=== PATIENT | male | born 1975 | race Caucasian/White ===

== ENCOUNTER 2018-03-01 16:31 | Inpatient (IN) ==
[2018-03-01] MEDS: traZODone 50 MG TABLET GTUBE SCH (23:02)
[2018-03-01] MEDS: Melatonin 3 MG TABLET GTUBE SCH (23:03)
[2018-03-02] MEDS: *HR* Heparin 5,000 UNIT/ML VIAL SQ SCH ×2 (05:28→17:16)
[2018-03-02 07:52] LABS: Basophils # 0.1 K/mcL (0.0-0.2); Basophils % 0.7 %; Eosinophils # 0.1 K/mcL (0.0-0.6); Eosinophils % 1.1 %; Hematocrit 42.9 % (37.5-50.1); Hemoglobin 14.2 g/dL (12.9-16.9); Immature Granulocytes % 0.3 % (0-4); Lymphocytes # 2.4 K/mcL (0.6-4.6); Lymphocytes % 32.4 %; Mean Corpuscular HGB Conc 33.1 g/dL (31.6-35.5); Mean Corpuscular Hemoglobin 30.1 pg (28.0-33.3); Mean Corpuscular Volume 91.1 fL (83.0-100.0); Mean Platelet Volume 11.4 fL (9.4-12.4); Monocytes # 0.7 K/mcL (0.0-1.3); Monocytes % 10.2 %; Platelet Count 261 K/mcL (140-400); Red Blood Count 4.71 M/mcL (4.19-5.50); Red Cell Distribution Width 12.6 % (11.5-14.5); Segmented Neutrophils % 55.3 %
[2018-03-02 08:16] LABS: Alanine Aminotransferase 36 Units/L (7-52); Albumin 4.3 g/dL (3.5-5.7); Albumin/Globulin Ratio 1.4 (1.1-2.2); Alkaline Phosphatase 187 Units/L (34-104); Aspartate Amino Transferase 26 Units/L (13-39); BUN/Creatinine Ratio 24 (6-26); Bilirubin,Total 0.4 mg/dL (0.3-1.0); Blood Urea Nitrogen 20 mg/dL (6-20); Calcium 9.6 mg/dL (8.6-10.3); Carbon Dioxide 32 mEq/L (23-29); Chloride 98 mEq/L (98-107); Globulin 3.1 g/dL (2.4-3.5); Glucose 89 mg/dL (70-105); Osmolality,Calculated 284 (280-300); Potassium 4.1 mEq/L (3.5-5.1); Sodium 136 mEq/L (136-145); Total Protein 7.4 g/dL (6.4-8.9); eGFR For Non-African Americans > 60 (> 60)
[2018-03-02] MEDS: Aspirin 81 MG TAB.CHEW GTUBE SCH (09:02)
[2018-03-02] MEDS: Metoclopramide 10 MG/10 ML UD.LIQ GTUBE SCH ×3 (09:02→17:15)
[2018-03-02] MEDS: Phenytoin Oral Susp 100 MG/4 ML UDC GTUBE SCH ×2 (10:08→21:17)
[2018-03-02] MEDS: levETIRAcetam 500 MG/5 ML UDC GTUBE SCH ×2 (10:08→21:19)
--- NOTE | 2018-03-02 12:55 | Internal Med History&Physical ---
Date of Encounter: 03/02/18 Time of Encounter: 12:55 Assessment and Plan (1) CVA (cerebral vascular accident) Current visit: Yes Status: Acute Patient was transferred to this facility for rehabilitation due to deconditioning secondary to left frontal CVA. 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 Per medical records recent CAT scans have shown no regrowth at the tumor site and also indicate no signs of hydrocephalus. Patient does have RECEIVABLE EXECUTIVE shunt in place. Patient has had a aphasia and dysphagia as a residual of his recent acute left CVA. She currently receives his nutritional intake by gastrostomy tube remains nothing by mouth. Physical therapy evaluation has been pending with recommendations. We will continue with current plan of care. Qualifiers: CVA mechanism: unspecified Qualified Code(s): I63.9 - Cerebral infarction, unspecified (2) Dysphasia Current visit: Yes Status: Acute Patient has dysphagia as a residual from his left frontal CVA. Patient currently receives bolus feedings through his gastrostomy tube and remains nothing by mouth. Patient indicated that he takes ice chips at home. We will have speech therapy evaluate. Will continue with nothing by mouth and bolus tube feedings. We will monitor nutrition by serial labs and weights. (3) HTN (hypertension) Current visit: Yes Status: Acute Vital signs are stable. We will continue with current medications. Qualifiers: Hypertension type: essential hypertension Qualified Code(s): I10 - Essential (primary) hypertension (4) Seizures Current visit: Yes Status: Chronic Patient with history of seizures. Currently no acute neurological deficits or noticeable seizure activity was noted. We will continue on his AED medications Internal Medicine - H&P: HPI Chief complaint: CVA Admitted From: Intrahospital Transfer Plans for Post Hospital Care: Home History of present illness: Mr. Ybarra is a 42 year old male who was admitted for rehabilitation due to deconditioning secondary to his having an acute left frontal CVA and a recent tumor debulking on the right frontal lobe several years ago, resulting in left hemiparesis. Patient also is nonverbal and has experienced dysphagia, remaining nothing by mouth with complete nutritional intake by gastrostomy tube. 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 Patient received chemotherapy treatments afterwards and annual CT scans over the past several years show no regrowth. Patient has a history of a RECEIVABLE EXECUTIVE shunt in place with recent CT scan showing no signs of hydrocephalus. 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 Patient currently indicates no complaints of discomforts or shortness of breath. Appears relaxed and communicates by spelling out words on his phone. Past Med Surg Social Fam HX - Past Medical History Medical history: CVA, malignancy Additional medical history: hx of brain cancer. Psychiatric history: no psych history - Past Surgical History Additional surgical history: brain CA - Social History Smoking Status: Never smoker Smokeless Tobacco Status: No Alcohol use: none Drug use: none Internal Medicine - H&P: Meds LevETIRAcetam [Levetiracetam] 1,000 mg GTUBE BID 11/27/15 [History] Acetaminophen [Tylenol] 650 mg GTUBE Q4HR PRN 03/01/18 [History] Amitriptyline [Elavil] 10 mg GTUBE HS 03/01/18 [History] Aspirin [Lo-Dose Aspirin EC] 81 mg GTUBE DAILY 03/01/18 [History] Atorvastatin Calcium [Lipitor] 20 mg GTUBE HS 03/01/18 [History] Donepezil HCl [Aricept] 10 mg GTUBE HS 03/01/18 [History] Metoclopramide [Reglan] 10 mg PO TIDAC 03/01/18 [History] Phenytoin Oral Susp [Dilantin Susp] 200 mg GTUBE BID 03/01/18 [History] Sucralfate [Carafate] 1 gm GTUBE QIDAC 03/01/18 [History] 3 Allergy/AdvReac Type Severity Reaction Status Date / Time codeine Allergy Hives Verified 03/01/18 20:56 Latex, Natural Rubber Allergy Hives Verified 03/01/18 21:05 lorazepam [From Ativan] Allergy Hives Verified 11/27/15 11:36 promethazine [From Phenergan] AdvReac Confusion Verified 03/01/18 21:05 All Systems PM: A 10-system review of systems was performed and is negative for pertinent findings except as documented above in the HPI. - Constitutional Constitutional: no chills, no fever(s), no night sweats - EENT Eyes: no change in vision, no discharge, no pain, no photophobia Ears: no ear discharge, no ear pain, no tinnitus Nose, mouth and throat: no dysphagia, no nasal discharge, no neck pain, no sore throat - Cardiovascular Cardiovascular ROS IM: as per HPI, no chest pain, no diaphoresis, no dyspnea, no lightheadedness, no palpitations, no syncope - Respiratory Respiratory: as per HPI, no cough, no dyspnea, no wheezing, no excessive phlegm production - Gastrointestinal Gastrointestinal: as per HPI, no abdominal pain, no diarrhea, no hematemesis, no hematochezia, no melena, no nausea, no vomiting - Musculoskeletal Musculoskeletal ROS IM: as per HPI, no numbness, no tingling - Integumentary Integumentary IM: no rash, no unusual bruising - Neurological Neurological ROS: as per HPI, no confusion, no convulsions, no focal weakness, no numbness, no tingling, no tremor(s) - Hematologic/Lymphatic Hematologic/Lymphatic: no easy bruising - Constitutional Vitals: Temp Pulse Resp BP Pulse Ox 98.3 F 72 16 114/77 94 03/02/18 12:26 03/02/18 12:26 03/02/18 12:26 03/02/18 12:26 03/02/18 12:26 Exam: Patient is nonverbal secondary to CVA. Patient is very appropriate with answering questions by spelling words on his phone. Exam is limited. - Head Head exam: Present: atraumatic Additional comments: Patient shows deformity of right parietal area of skull secondary from have and 3 craniotomies over the past several years for tumor debulking. - Eye Eye exam: Present: PERRL, conjuntiva pink, sclera anicteric Pupils: Present: PERRL - Neck Neck exam general surgery: Present: supple, trachea midline. Absent: lymphadenopathy - Respiratory Respiratory exam: Present: CTAB. Absent: accessory muscle use, rales, rhonchi, wheezes - Cardiovascular Cardiovascular exam: Present: RRR, +S1, +S2. Absent: diastolic murmur, gallop, rubs, systolic murmur - GI/Abdominal GI/Abdominal exam: Present: normal bowel sounds, soft, no peritoneal signs. Absent: distended, tenderness Additional comments: Gastrostomy tube in place with insertion site appearing normal - Extremities Exam Extremities exam: Present: warm, radial pulses palpable and symmetrical. Absent : calf tenderness, cyanotic, pedal edema - Neurological Exam Neurological exam: Present: CN II-XII intact, oriented X3. Absent: pronater drift, facial droop, speech deficit Additional comments: Patient shows left hemiparesis with left extremities and 4/5 and right extremities at 5/5 muscle strength. Patient is nonverbal and has history of dysphagia, remaining nothing by mouth - Skin Skin exam: Present: dry, intact Internal Med - H&P Results - Labs CBC & Chem 7: 03/02/18 06:50 03/02/18 06:50 Labs: Short CBC 03/02/18 Range/Units 06:50 WBC 7.3 (4.3-11.1) K/mcL Hgb 14.2 (12.9-16.9) g/dL Hct 42.9 (37.5-50.1) % Plt Count 261 (140-400) K/mcL Neutrophils # 4.0 (1.6-8.9) K/mcL BMP 03/02/18 06:50 Sodium 136 Potassium 4.1 Chloride 98 Carbon Dioxide 32 H BUN 20 Creatinine 0.83 Glucose 89 Calcium 9.6 Liver Function 03/02/18 Range/Units 06:50 Total Bilirubin 0.4 (0.3-1.0) mg/dL AST 26 (13-39) Units/L ALT 36 (7-52) Units/L Alkaline Phosphatase 187 H (34-104) Units/L Albumin 4.3 (3.5-5.7) g/dL
[2018-03-02] MEDS: traZODone 50 MG TABLET GTUBE SCH (21:20)
[2018-03-02] MEDS: Melatonin 3 MG TABLET GTUBE SCH (21:20)
[2018-03-03] MEDS: Metoclopramide 10 MG/10 ML UD.LIQ GTUBE SCH ×3 (06:31→17:17)
[2018-03-03] MEDS: *HR* Heparin 5,000 UNIT/ML VIAL SQ SCH ×2 (06:37→17:17)
[2018-03-03] MEDS: Phenytoin Oral Susp 100 MG/4 ML UDC GTUBE SCH ×2 (08:39→21:32)
[2018-03-03] MEDS: Aspirin 81 MG TAB.CHEW GTUBE SCH (08:39)
[2018-03-03] MEDS: levETIRAcetam 500 MG/5 ML UDC GTUBE SCH ×2 (08:39→21:32)
--- NOTE | 2018-03-03 14:08 | Internal Med Progress Note ---
Date of Encounter: 03/03/18 Time of Encounter: 14:06 - Assessment and plan (1) CVA (cerebral vascular accident) Current Visit: Yes Status: Acute Assessment and plan: We will continue therapies as planned. Swallowing assessment will be completed and discussed possible modified barium if this can be arranged, next week. In the meantime, he will not be given liquids and will be fed with tube feeds, only. Qualifiers: CVA mechanism: unspecified Qualified Code(s): I63.9 - Cerebral infarction, unspecified (2) Dysphasia Current Visit: Yes Status: Acute Assessment and plan: See above. (3) HTN (hypertension) Current Visit: Yes Status: Acute Assessment and plan: He is stable from this standpoint. Qualifiers: Hypertension type: essential hypertension Qualified Code(s): I10 - Essential (primary) hypertension (4) Seizures Current Visit: Yes Status: Chronic Assessment and plan: No evidence of seizures, currently. (5) Glioblastoma multiforme Current Visit: Yes Status: Acute Assessment and plan: This is apparently in remission since 2003. He is status post craniotomy 3 as well as radiation. - Subjective Interval history: Patient without complaint. He is doing well and has no bowel or bladder problems. Discussed the patient swallowing and speech therapy's recommendation to use water protocol after nursing staff can be oriented to paresis same. This is because he has March weakness in his muscles and probably is at increasing aspiration risk. We discussed the need for DVT prophylaxis and that he should have either enoxaparin or heparin subcutaneous. An alternative is dose but not as good. If he refuses, we cannot force him to do so and he understands his risk. He is participating well with therapies and has no issues with that. Patient has no complaint of chest discomfort, dyspnea, orthopnea, palpitations, nausea or vomiting, constipation or diarrhea, other changes in bowel habits, difficulty with urination, rash or itching, or other new complaints, except as mentioned above. Review of systems is otherwise negative. I discussed management of her care with nursing staff. - Constitutional Vitals: Temp Pulse Resp BP Pulse Ox 98.3 F 77 15 112/68 94 03/03/18 07:36 03/03/18 07:36 03/03/18 07:36 03/03/18 07:36 03/03/18 07:36 Exam: Examination: (Except as mentioned above): General: In no apparent distress. Alert and oriented 3. Nondiaphoretic. Head: Atraumatic and normocephalic. Respiratory: No use of accessory muscles. Lungs are clear throughout. Normal airflow. Cardiovascular: Regular rate and rhythm without murmur appreciated. Abdomen: Bowel sounds are normal. No hepatosplenomegaly mass or tenderness appreciated. Obese and therefore difficult to palpate deeply. Extremities: No cyanosis clubbing or edema. Neurologic: The patient still has difficulty with speech and communicates via texting on his cell phone. Skin: Warm and non-diaphoretic with no new lesions noted. Internal Medicine: Result - Labs CBC & Chem 7: 03/02/18 06:50 03/02/18 06:50 Consult Discharge Plan - Plan Referrals: Arias Barth MD [Primary Care Provider] -
[2018-03-03] MEDS: Melatonin 3 MG TABLET GTUBE SCH (21:34)
[2018-03-03] MEDS: traZODone 50 MG TABLET GTUBE SCH (21:34)
[2018-03-04] MEDS: *HR* Heparin 5,000 UNIT/ML VIAL SQ SCH (08:09)
[2018-03-04] MEDS: Aspirin 81 MG TAB.CHEW GTUBE SCH (08:12)
[2018-03-04] MEDS: levETIRAcetam 500 MG/5 ML UDC GTUBE SCH ×2 (08:12→20:29)
[2018-03-04] MEDS: Metoclopramide 10 MG/10 ML UD.LIQ GTUBE SCH ×3 (08:12→16:19)
[2018-03-04] MEDS: Phenytoin Oral Susp 100 MG/4 ML UDC GTUBE SCH ×2 (08:12→20:30)
--- NOTE | 2018-03-04 11:52 | Internal Med Progress Note ---
Date of Encounter: 03/04/18 Time of Encounter: 11:49 - Assessment and plan (1) CVA (cerebral vascular accident) Current Visit: Yes Status: Acute Assessment and plan: Continue PT, OT. Will follow progress. Continue feeding through G-tube. No new neurological deficits at this time. Qualifiers: CVA mechanism: unspecified Qualified Code(s): I63.9 - Cerebral infarction, unspecified (2) Dysphasia Current Visit: Yes Status: Acute Assessment and plan: Using alternative forms for communication appropriately. (3) HTN (hypertension) Current Visit: Yes Status: Acute Assessment and plan: Controlled with current medication. Monitor blood pressure. Qualifiers: Hypertension type: essential hypertension Qualified Code(s): I10 - Essential (primary) hypertension (4) Seizures Current Visit: Yes Status: Chronic Assessment and plan: Controlled. Continue current medication. (5) Glioblastoma multiforme Current Visit: Yes Status: Acute - Time Spent With Patient less than 15 minutes - Subjective Interval history: Resting in bed. Denies complaints. Continues enteral feedthrough G-tube. - Constitutional Vitals: Temp Pulse Resp BP Pulse Ox 98.8 F 74 16 105/66 96 03/04/18 07:34 03/04/18 07:34 03/04/18 07:34 03/04/18 07:34 03/04/18 07:34 General appearance: Present: A&O X 3, pleasant, no acute distress, answers questions appropriately Exam: Has dysphasia from previous stroke. Communicates through text. - Head Head exam: Present: atraumatic, normocephalic - Eye Eye exam: Present: PERRL, conjuntiva pink, sclera anicteric Pupils: Present: PERRL - Neck Neck exam general surgery: Present: supple, trachea midline. Absent: lymphadenopathy - Respiratory Respiratory exam: Present: CTAB. Absent: accessory muscle use, rales, rhonchi, wheezes - Cardiovascular Cardiovascular exam: Present: RRR, +S1, +S2. Absent: diastolic murmur, gallop, rubs, systolic murmur - GI/Abdominal GI/Abdominal exam: Present: normal bowel sounds, soft, no peritoneal signs. Absent: distended, tenderness - Extremities Exam Extremities exam: Present: warm, radial pulses palpable and symmetrical. Absent : calf tenderness, cyanotic, pedal edema - Neurological Exam Neurological exam: Present: CN II-XII intact, oriented X3, no focal deficits. Absent: pronater drift, facial droop, speech deficit - Skin Skin exam: Present: dry, intact Internal Medicine: Result - Labs CBC & Chem 7: 03/02/18 06:50 03/02/18 06:50 Consult Discharge Plan - Plan Referrals: Arias Barth MD [Primary Care Provider] -
[2018-03-04] MEDS: Melatonin 3 MG TABLET GTUBE SCH (20:30)
[2018-03-04] MEDS: traZODone 50 MG TABLET GTUBE SCH (20:30)
[2018-03-05 07:21] LABS: Basophils # 0.1 K/mcL (0.0-0.2); Basophils % 0.8 %; Eosinophils # 0.1 K/mcL (0.0-0.6); Hematocrit 40.3 % (37.5-50.1); Hemoglobin 13.4 g/dL (12.9-16.9); Immature Granulocytes % 0.3 % (0-4); Lymphocytes # 2.6 K/mcL (0.6-4.6); Lymphocytes % 32.5 %; Mean Corpuscular HGB Conc 33.3 g/dL (31.6-35.5); Mean Corpuscular Hemoglobin 30.1 pg (28.0-33.3); Mean Corpuscular Volume 90.6 fL (83.0-100.0); Mean Platelet Volume 11.1 fL (9.4-12.4); Monocytes # 0.8 K/mcL (0.0-1.3); Monocytes % 10.2 %; Neutrophils # 4.3 K/mcL (1.6-8.9); Platelet Count 225 K/mcL (140-400); Red Blood Count 4.45 M/mcL (4.19-5.50); Red Cell Distribution Width 12.6 % (11.5-14.5); Segmented Neutrophils % 55.2 %
[2018-03-05] MEDS: levETIRAcetam 500 MG/5 ML UDC GTUBE SCH ×2 (08:23→21:54)
[2018-03-05] MEDS: Phenytoin Oral Susp 100 MG/4 ML UDC GTUBE SCH ×2 (08:24→21:54)
[2018-03-05] MEDS: Metoclopramide 10 MG/10 ML UD.LIQ GTUBE SCH ×3 (08:24→16:40)
[2018-03-05] MEDS: Aspirin 81 MG TAB.CHEW GTUBE SCH (08:25)
[2018-03-05 08:27] LABS: BUN/Creatinine Ratio 29 (6-26); Blood Urea Nitrogen 20 mg/dL (6-20); Calcium 9.1 mg/dL (8.6-10.3); Carbon Dioxide 30 mEq/L (23-29); Chloride 97 mEq/L (98-107); Glucose 85 mg/dL (70-105); Osmolality,Calculated 282 (280-300); Potassium 3.6 mEq/L (3.5-5.1); Sodium 135 mEq/L (136-145); eGFR For Non-African Americans > 60 (> 60)
--- NOTE | 2018-03-05 13:34 | Internal Med Progress Note ---
Date of Encounter: 03/05/18 Time of Encounter: 13:32 - Assessment and plan (1) CVA (cerebral vascular accident) Current Visit: Yes Status: Acute Assessment and plan: Continue PT, OT. Will follow progress. Continue feeding through G-tube. No new neurological deficits at this time. Qualifiers: CVA mechanism: unspecified Qualified Code(s): I63.9 - Cerebral infarction, unspecified (2) Dysphasia Current Visit: Yes Status: Acute Assessment and plan: Using alternative forms for communication appropriately. (3) HTN (hypertension) Current Visit: Yes Status: Acute Assessment and plan: Controlled with current medication. Monitor blood pressure. Qualifiers: Hypertension type: essential hypertension Qualified Code(s): I10 - Essential (primary) hypertension (4) Seizures Current Visit: Yes Status: Chronic Assessment and plan: Controlled. Continue current medication. (5) Glioblastoma multiforme Current Visit: Yes Status: Acute - Time Spent With Patient 25 - 35 minutes - Subjective Interval history: participating well with therapy. Denies complaints. Continues enteral feedthrough G-tube. remains NPO. CGA to sit to stand. AFo on Left foot. - Constitutional Vitals: Temp Pulse Resp BP Pulse Ox 97.9 F 82 16 121/76 96 03/04/18 18:48 03/04/18 18:48 03/04/18 18:48 03/04/18 18:48 03/04/18 18:48 General appearance: Present: A&O X 3, pleasant, no acute distress, answers questions appropriately - Head Head exam: Present: atraumatic, normocephalic - Eye Eye exam: Present: PERRL, conjuntiva pink, sclera anicteric Pupils: Present: PERRL - Neck Neck exam general surgery: Present: supple, trachea midline. Absent: lymphadenopathy - Respiratory Respiratory exam: Present: CTAB. Absent: accessory muscle use, rales, rhonchi, wheezes - Cardiovascular Cardiovascular exam: Present: RRR, +S1, +S2. Absent: diastolic murmur, gallop, rubs, systolic murmur - GI/Abdominal GI/Abdominal exam: Present: normal bowel sounds, soft, no peritoneal signs. Absent: distended, tenderness - Extremities Exam Extremities exam: Present: warm, radial pulses palpable and symmetrical. Absent : calf tenderness, cyanotic, pedal edema - Neurological Exam Neurological exam: Present: CN II-XII intact, oriented X3, no focal deficits. Absent: pronater drift, facial droop, speech deficit - Skin Skin exam: Present: dry, intact Internal Medicine: Result - Labs CBC & Chem 7: 03/05/18 07:05 03/05/18 07:05 Labs: Short CBC 03/05/18 Range/Units 07:05 WBC 7.9 (4.3-11.1) K/mcL Hgb 13.4 (12.9-16.9) g/dL Hct 40.3 (37.5-50.1) % Plt Count 225 (140-400) K/mcL Neutrophils # 4.3 (1.6-8.9) K/mcL BMP 03/05/18 07:05 Sodium 135 L Potassium 3.6 Chloride 97 L Carbon Dioxide 30 H BUN 20 Creatinine 0.70 Glucose 85 Calcium 9.1 Consult Discharge Plan - Plan Referrals: Arias Barth MD [Primary Care Provider] -
[2018-03-05] MEDS: traZODone 50 MG TABLET GTUBE SCH (21:55)
[2018-03-05] MEDS: Melatonin 3 MG TABLET GTUBE SCH (21:55)
[2018-03-06] MEDS: Metoclopramide 10 MG/10 ML UD.LIQ GTUBE SCH ×3 (06:44→16:47)
[2018-03-06] MEDS: levETIRAcetam 500 MG/5 ML UDC GTUBE SCH ×2 (09:04→21:26)
[2018-03-06] MEDS: Phenytoin Oral Susp 100 MG/4 ML UDC GTUBE SCH ×2 (09:04→21:25)
[2018-03-06] MEDS: Aspirin 81 MG TAB.CHEW GTUBE SCH (09:05)
--- NOTE | 2018-03-06 10:24 | Internal Med Progress Note ---
Date of Encounter: 03/06/18 Time of Encounter: 10:22 - Assessment and plan (1) CVA (cerebral vascular accident) Current Visit: Yes Status: Acute Assessment and plan: Continue PT, OT. Will follow progress. Continue feeding through G-tube. No new neurological deficits at this time. Qualifiers: CVA mechanism: unspecified Qualified Code(s): I63.9 - Cerebral infarction, unspecified (2) Dysphasia Current Visit: Yes Status: Acute Assessment and plan: Using alternative forms for communication appropriately. (3) HTN (hypertension) Current Visit: Yes Status: Acute Assessment and plan: Controlled with current medication. Monitor blood pressure. Qualifiers: Hypertension type: essential hypertension Qualified Code(s): I10 - Essential (primary) hypertension (4) Seizures Current Visit: Yes Status: Chronic Assessment and plan: Controlled. Continue current medication. (5) Glioblastoma multiforme Current Visit: Yes Status: Acute - Time Spent With Patient less than 15 minutes - Subjective Interval history: participating well with therapy. Denies complaints. Continues enteral feedthrough G-tube. remains NPO. CGA to sit to stand. AFO on Left foot. states slept well last night. - Constitutional Vitals: Temp Pulse Resp BP Pulse Ox 98.0 F 77 16 100/65 97 03/06/18 07:00 03/06/18 07:00 03/06/18 07:00 03/06/18 07:00 03/06/18 07:00 General appearance: Present: A&O X 3, pleasant, no acute distress, answers questions appropriately - Head Head exam: Present: atraumatic, normocephalic - Eye Eye exam: Present: PERRL, conjuntiva pink, sclera anicteric Pupils: Present: PERRL - Neck Neck exam general surgery: Present: supple, trachea midline. Absent: lymphadenopathy - Respiratory Respiratory exam: Present: CTAB. Absent: accessory muscle use, rales, rhonchi, wheezes - Cardiovascular Cardiovascular exam: Present: RRR, +S1, +S2. Absent: diastolic murmur, gallop, rubs, systolic murmur - GI/Abdominal GI/Abdominal exam: Present: normal bowel sounds, soft, no peritoneal signs. Absent: distended, tenderness - Extremities Exam Extremities exam: Present: warm, radial pulses palpable and symmetrical. Absent : calf tenderness, cyanotic, pedal edema - Neurological Exam Neurological exam: Present: CN II-XII intact, oriented X3, no focal deficits. Absent: pronater drift, facial droop, speech deficit - Skin Skin exam: Present: dry, intact Internal Medicine: Result - Labs CBC & Chem 7: 03/05/18 07:05 03/05/18 07:05 Consult Discharge Plan - Plan Referrals: Arias Barth MD [Primary Care Provider] -
[2018-03-06] MEDS: Melatonin 3 MG TABLET GTUBE SCH (21:26)
[2018-03-06] MEDS: traZODone 50 MG TABLET GTUBE SCH (21:27)
[2018-03-07] MEDS: Aspirin 81 MG TAB.CHEW GTUBE SCH (07:37)
[2018-03-07] MEDS: Metoclopramide 10 MG/10 ML UD.LIQ GTUBE SCH ×3 (07:37→16:38)
[2018-03-07] MEDS: Phenytoin Oral Susp 100 MG/4 ML UDC GTUBE SCH ×2 (07:37→22:06)
[2018-03-07] MEDS: levETIRAcetam 500 MG/5 ML UDC GTUBE SCH ×2 (07:38→22:06)
--- NOTE | 2018-03-07 15:15 | Internal Med Progress Note ---
Date of Encounter: 03/07/18 Time of Encounter: 15:12 - Assessment and plan (1) CVA (cerebral vascular accident) Current Visit: Yes Status: Acute Assessment and plan: Continue PT, OT. Will follow progress. Continue feeding through G-tube. No new neurological deficits at this time. Qualifiers: CVA mechanism: unspecified Qualified Code(s): I63.9 - Cerebral infarction, unspecified (2) Dysphasia Current Visit: Yes Status: Acute Assessment and plan: Using alternative forms for communication appropriately. (3) HTN (hypertension) Current Visit: Yes Status: Acute Assessment and plan: Controlled with current medication. Monitor blood pressure. Qualifiers: Hypertension type: essential hypertension Qualified Code(s): I10 - Essential (primary) hypertension (4) Seizures Current Visit: Yes Status: Chronic Assessment and plan: Controlled. Continue current medication. (5) Glioblastoma multiforme Current Visit: Yes Status: Acute - Time Spent With Patient 25 - 35 minutes - Subjective Interval history: participating well with therapy. Denies complaints. Discussed with dietitian about changing to feed. Patient complaining of reflux and constipation. Refuses to take Miralax. - Constitutional Vitals: Temp Pulse Resp BP Pulse Ox 98.3 F 68 16 101/66 98 03/07/18 07:21 03/07/18 07:21 03/07/18 07:21 03/07/18 07:21 03/07/18 07:21 General appearance: Present: A&O X 3, pleasant, no acute distress, answers questions appropriately - Head Head exam: Present: atraumatic, normocephalic - Eye Eye exam: Present: PERRL, conjuntiva pink, sclera anicteric Pupils: Present: PERRL - Neck Neck exam general surgery: Present: supple, trachea midline. Absent: lymphadenopathy - Respiratory Respiratory exam: Present: CTAB. Absent: accessory muscle use, rales, rhonchi, wheezes - Cardiovascular Cardiovascular exam: Present: RRR, +S1, +S2. Absent: diastolic murmur, gallop, rubs, systolic murmur - GI/Abdominal GI/Abdominal exam: Present: normal bowel sounds, soft, no peritoneal signs. Absent: distended, tenderness - Extremities Exam Extremities exam: Present: warm, radial pulses palpable and symmetrical. Absent : calf tenderness, cyanotic, pedal edema - Neurological Exam Neurological exam: Present: CN II-XII intact, oriented X3, no focal deficits. Absent: pronater drift, facial droop, speech deficit - Skin Skin exam: Present: dry, intact Internal Medicine: Result - Labs CBC & Chem 7: 03/05/18 07:05 03/05/18 07:05 Consult Discharge Plan - Plan Referrals: Arias Barth MD [Primary Care Provider] -
[2018-03-07] MEDS: traZODone 50 MG TABLET GTUBE SCH (22:08)
[2018-03-07] MEDS: Melatonin 3 MG TABLET GTUBE SCH (22:08)
[2018-03-08] MEDS: Phenytoin Oral Susp 100 MG/4 ML UDC GTUBE SCH ×2 (09:04→21:36)
[2018-03-08] MEDS: levETIRAcetam 500 MG/5 ML UDC GTUBE SCH ×2 (09:05→21:36)
[2018-03-08] MEDS: Metoclopramide 10 MG/10 ML UD.LIQ GTUBE SCH ×3 (09:05→17:55)
[2018-03-08] MEDS: Aspirin 81 MG TAB.CHEW GTUBE SCH (09:05)
--- NOTE | 2018-03-08 13:41 | Internal Med Progress Note ---
Date of Encounter: 03/08/18 Time of Encounter: 13:45 - Assessment and plan (1) CVA (cerebral vascular accident) Current Visit: Yes Status: Acute Assessment and plan: No acute issues noted. No complaints. Patient remnains nonverbal and with dysphasia. Continued NPO with nutrition per TF. Continued slight left hemiparesis. Continues to progress with PT/OT. Qualifiers: CVA mechanism: unspecified Qualified Code(s): I63.9 - Cerebral infarction, unspecified (2) Dysphasia Current Visit: Yes Status: Acute Assessment and plan: Continue with therapy and TF per GT. Noted high residue today, which may be related to poor progression due to recent constipation. Will review current laxatives and continue to monitor. (3) HTN (hypertension) Current Visit: Yes Status: Acute Assessment and plan: VS stable. Continue on current meds. Qualifiers: Hypertension type: essential hypertension Qualified Code(s): I10 - Essential (primary) hypertension (4) Seizures Current Visit: Yes Status: Chronic Assessment and plan: No noted seizure activity or acute neuro deficits noted. Continue on current AED meds. - Time Spent With Patient less than 15 minutes - Subjective Interval history: Patient is nonverbal, but indicates no issues. Patient communicates by spelling needs on his phone. Denies any dypnea or discomforts. - Constitutional Vitals: Temp Pulse Resp BP Pulse Ox 98.2 F 65 17 110/61 93 03/08/18 07:07 03/08/18 07:07 03/08/18 07:07 03/08/18 07:07 03/08/18 07:07 General appearance: Present: A&O X 3, pleasant, no acute distress, answers questions appropriately - Head Head exam: Present: atraumatic, normocephalic Additional comments: deformity noted to the right héctor secondary to history of multiple craniotomies. - Eye Eye exam: Present: PERRL, conjuntiva pink, sclera anicteric Pupils: Present: PERRL - Neck Neck exam general surgery: Present: supple, trachea midline. Absent: lymphadenopathy - Respiratory Respiratory exam: Present: CTAB. Absent: accessory muscle use, rales, rhonchi, wheezes - Cardiovascular Cardiovascular exam: Present: RRR, +S1, +S2. Absent: diastolic murmur, gallop, rubs, systolic murmur - GI/Abdominal GI/Abdominal exam: Present: normal bowel sounds, soft, no peritoneal signs. Absent: distended, tenderness Additional comments: GT in place - Extremities Exam Extremities exam: Present: warm, radial pulses palpable and symmetrical. Absent : calf tenderness, cyanotic, pedal edema - Neurological Exam Neurological exam: Present: CN II-XII intact, oriented X3. Absent: pronater drift, facial droop, speech deficit Additional comments: Patient shows left hemiparesis with left extremities and 4/5 and right extremities at 5/5 muscle strength. Patient is nonverbal and has history of dysphagia, remaining nothing by mouth - Skin Skin exam: Present: dry, intact Internal Medicine: Result - Labs CBC & Chem 7: 03/05/18 07:05 03/05/18 07:05 Consult Discharge Plan - Plan Referrals: Arias Barth MD [Primary Care Provider] -
[2018-03-08] MEDS: Melatonin 3 MG TABLET GTUBE SCH (21:37)
[2018-03-08] MEDS: traZODone 50 MG TABLET GTUBE SCH (21:38)
[2018-03-09] MEDS: Metoclopramide 10 MG/10 ML UD.LIQ GTUBE SCH ×3 (06:10→17:19)
[2018-03-09] MEDS: Phenytoin Oral Susp 100 MG/4 ML UDC GTUBE SCH ×2 (09:00→22:27)
[2018-03-09] MEDS: levETIRAcetam 500 MG/5 ML UDC GTUBE SCH ×2 (09:00→22:34)
[2018-03-09] MEDS: Aspirin 81 MG TAB.CHEW GTUBE SCH (09:01)
--- NOTE | 2018-03-09 11:16 | Internal Med Progress Note ---
Date of Encounter: 03/09/18 Time of Encounter: 11:14 - Assessment and plan (1) CVA (cerebral vascular accident) Current Visit: Yes Status: Acute Assessment and plan: No acute issues noted. No complaints. Patient remnains nonverbal and with dysphasia. Continued NPO with nutrition per TF. Continued slight left hemiparesis. Continues to progress with PT/OT. Qualifiers: CVA mechanism: unspecified Qualified Code(s): I63.9 - Cerebral infarction, unspecified (2) Dysphasia Current Visit: Yes Status: Acute Assessment and plan: Continue with therapy and TF per GT. Patient has had a BM. Noted less residuals be received by nursing after changing current tube feeding to Jevity (3) HTN (hypertension) Current Visit: Yes Status: Acute Assessment and plan: VS stable. Continue on current meds. Qualifiers: Hypertension type: essential hypertension Qualified Code(s): I10 - Essential (primary) hypertension (4) Seizures Current Visit: Yes Status: Chronic Assessment and plan: No noted seizure activity or acute neuro deficits noted. Continue on current AED meds. - Time Spent With Patient less than 15 minutes - Subjective Interval history: Patient is nonverbal, but indicates no issues. Patient communicates by spelling needs on his phone. Denies any dypnea or discomforts. Nursing states that patient is tolerating current change in tube feedings. Patient also reportedly had a BM and now has been having less tube feeding residuals obtained. - Constitutional Vitals: Temp Pulse Resp BP Pulse Ox 98.8 F 79 16 117/68 98 03/09/18 08:04 03/09/18 08:04 03/09/18 08:04 03/09/18 08:04 03/09/18 08:04 General appearance: Present: A&O X 3, pleasant, no acute distress, answers questions appropriately - Head Head exam: Present: atraumatic, normocephalic Additional comments: Patient shows deformity to the right skull, secondary to multiple craniotomies for tumor debulking - Eye Eye exam: Present: PERRL, conjuntiva pink, sclera anicteric Pupils: Present: PERRL - Neck Neck exam general surgery: Present: supple, trachea midline. Absent: lymphadenopathy - Respiratory Respiratory exam: Present: CTAB. Absent: accessory muscle use, rales, rhonchi, wheezes - Cardiovascular Cardiovascular exam: Present: RRR, +S1, +S2. Absent: diastolic murmur, gallop, rubs, systolic murmur - GI/Abdominal GI/Abdominal exam: Present: normal bowel sounds, soft, no peritoneal signs. Absent: distended, tenderness - Extremities Exam Extremities exam: Present: warm, radial pulses palpable and symmetrical. Absent : calf tenderness, cyanotic, pedal edema - Neurological Exam Neurological exam: Present: CN II-XII intact, oriented X3. Absent: pronater drift, facial droop, speech deficit Additional comments: Patient continues to be nonverbal and with dysphagia. All nutrition per gastrostomy tube. Continues with left hemiparesis with left extremities having muscle strength of 4/5 and right extremities showing muscle strength of 5/5 - Skin Skin exam: Present: dry, intact Internal Medicine: Result - Labs CBC & Chem 7: 03/05/18 07:05 03/05/18 07:05 Consult Discharge Plan - Plan Referrals: Arias Barth MD [Primary Care Provider] -
[2018-03-09] MEDS: Melatonin 3 MG TABLET GTUBE SCH (22:17)
[2018-03-09] MEDS: traZODone 50 MG TABLET GTUBE SCH (22:18)
[2018-03-10] MEDS: Metoclopramide 10 MG/10 ML UD.LIQ GTUBE SCH ×3 (06:36→18:23)
[2018-03-10] MEDS: levETIRAcetam 500 MG/5 ML UDC GTUBE SCH ×2 (09:28→21:15)
[2018-03-10] MEDS: Phenytoin Oral Susp 100 MG/4 ML UDC GTUBE SCH ×2 (09:28→21:22)
[2018-03-10] MEDS: Aspirin 81 MG TAB.CHEW GTUBE SCH (09:29)
--- NOTE | 2018-03-10 11:44 | Internal Med Progress Note ---
Date of Encounter: 03/10/18 Time of Encounter: 11:25 - Assessment and plan (1) CVA (cerebral vascular accident) Current Visit: Yes Status: Acute Assessment and plan: Continue routine care/management per PT/OT/ST. Continue TF given NPO requirement. Qualifiers: CVA mechanism: unspecified Qualified Code(s): I63.9 - Cerebral infarction, unspecified (2) Dysphasia Current Visit: Yes Status: Acute Assessment and plan: Continue TF, but will adjust amount over the weekend so the patient does not feel too overwhelmed. Will continue to monitor I&O and intervene as appropriate. Appreciate nutrition's input. (3) HTN (hypertension) Current Visit: Yes Status: Acute Qualifiers: Hypertension type: essential hypertension Qualified Code(s): I10 - Essential (primary) hypertension (4) Seizures Current Visit: Yes Status: Chronic Assessment and plan: Continue current AED - Time Spent With Patient less than 15 minutes - Subjective Interval history: Tube feed was a little too much handle, so the patient requested to be off of one of the feeds. - Constitutional Vitals: Temp Pulse Resp BP Pulse Ox 98.3 F 87 19 99/67 94 03/10/18 07:42 03/10/18 07:42 03/10/18 07:42 03/10/18 07:42 03/10/18 07:42 General appearance: Present: A&O X 3, pleasant, no acute distress, answers questions appropriately Exam: Gen: Alert, non-verbal, NAD. Communicating through typing. HEENT: NCAT. Neck: No palpable lymphadenopathy or thyromegaly. CV: RRR, S1S2. No murmur. Capillary refill < 2 seconds. Pulm: CTAB. Abd: (+)BS. NDNT. Neuro: Left facial droop, LUE weakness, and LLE weakness noted. Skin: No rash. Ext: No pitting edema. Internal Medicine: Result - Labs CBC & Chem 7: 03/05/18 07:05 03/05/18 07:05 - VTE Documentation of Mechanical Device: Graduated compression elastic hosiery Consult Discharge Plan - Plan Referrals: Arias Barth MD [Primary Care Provider] -
[2018-03-10] MEDS: Melatonin 3 MG TABLET GTUBE SCH (21:23)
[2018-03-10] MEDS: traZODone 50 MG TABLET GTUBE SCH (21:24)
[2018-03-11] MEDS: Metoclopramide 10 MG/10 ML UD.LIQ GTUBE SCH ×3 (06:53→17:25)
--- NOTE | 2018-03-11 07:59 | Internal Med Progress Note ---
Date of Encounter: 03/11/18 Time of Encounter: 07:50 - Assessment and plan (1) CVA (cerebral vascular accident) Current Visit: Yes Status: Acute Assessment and plan: Continue routine care/management per PT/OT/ST. Continue TF given NPO requirement. Qualifiers: CVA mechanism: unspecified Qualified Code(s): I63.9 - Cerebral infarction, unspecified (2) Dysphasia Current Visit: Yes Status: Acute Assessment and plan: Continue TF, but will adjust amount over the weekend so the patient does not feel too overwhelmed. Will continue to monitor I&O and intervene as appropriate. Appreciate nutrition's input. (3) HTN (hypertension) Current Visit: Yes Status: Acute Qualifiers: Hypertension type: essential hypertension Qualified Code(s): I10 - Essential (primary) hypertension (4) Seizures Current Visit: Yes Status: Chronic Assessment and plan: Continue current AED - Time Spent With Patient less than 15 minutes - Subjective Interval history: "Thumb up" when asked how he was feeling. Reports feeling no longer overwhelmed with the TF. - Constitutional Vitals: Temp Pulse Resp BP Pulse Ox 97.8 F 74 14 99/69 96 03/11/18 07:39 03/11/18 07:39 03/11/18 07:39 03/11/18 07:39 03/11/18 07:39 General appearance: Present: A&O X 3, pleasant, no acute distress, answers questions appropriately Exam: Gen: Alert, non-verbal, NAD. Communicating through typing. HEENT: NCAT. Neck: No palpable lymphadenopathy or thyromegaly. CV: RRR, S1S2. No murmur. Capillary refill < 2 seconds. Pulm: CTAB. Abd: (+)BS. NDNT. Neuro: Left facial droop, LUE weakness, and LLE weakness noted. Skin: No rash. Ext: No pitting edema. Internal Medicine: Result - Labs CBC & Chem 7: 03/05/18 07:05 03/05/18 07:05 - VTE Documentation of Mechanical Device: Graduated compression elastic hosiery Consult Discharge Plan - Plan Referrals: Arias Barth MD [Primary Care Provider] -
[2018-03-11] MEDS: Phenytoin Oral Susp 100 MG/4 ML UDC GTUBE SCH ×2 (09:04→21:16)
[2018-03-11] MEDS: levETIRAcetam 500 MG/5 ML UDC GTUBE SCH ×2 (09:05→21:16)
[2018-03-11] MEDS: Aspirin 81 MG TAB.CHEW GTUBE SCH (11:17)
[2018-03-11] MEDS: Melatonin 3 MG TABLET GTUBE SCH (21:17)
[2018-03-11] MEDS: traZODone 50 MG TABLET GTUBE SCH (21:18)
[2018-03-12] MEDS: Metoclopramide 10 MG/10 ML UD.LIQ GTUBE SCH ×3 (06:03→16:23)
[2018-03-12] MEDS: Phenytoin Oral Susp 100 MG/4 ML UDC GTUBE SCH ×2 (09:15→21:00)
[2018-03-12] MEDS: levETIRAcetam 500 MG/5 ML UDC GTUBE SCH ×2 (09:15→21:02)
[2018-03-12] MEDS: Aspirin 81 MG TAB.CHEW GTUBE SCH (09:15)
[2018-03-12 09:44] LABS: Basophils # 0.1 K/mcL (0.0-0.2); Eosinophils # 0.1 K/mcL (0.0-0.6); Hemoglobin 13.1 g/dL (12.9-16.9); Lymphocytes % 28.8 %; Mean Corpuscular HGB Conc 33.6 g/dL (31.6-35.5); Mean Corpuscular Hemoglobin 30.6 pg (28.0-33.3); Mean Corpuscular Volume 91.1 fL (83.0-100.0); Mean Platelet Volume 11.3 fL (9.4-12.4); Monocytes # 0.7 K/mcL (0.0-1.3); Monocytes % 10.9 %; Neutrophils # 3.9 K/mcL (1.6-8.9); Platelet Count 260 K/mcL (140-400); Red Blood Count 4.28 M/mcL (4.19-5.50); Red Cell Distribution Width 12.6 % (11.5-14.5); Segmented Neutrophils % 58.3 %
[2018-03-12 10:17] LABS: BUN/Creatinine Ratio 24 (6-26); Blood Urea Nitrogen 17 mg/dL (6-20); Carbon Dioxide 34 mEq/L (23-29); Chloride 99 mEq/L (98-107); Glucose 88 mg/dL (70-105); Osmolality,Calculated 285 (280-300); Potassium 3.6 mEq/L (3.5-5.1); Sodium 137 mEq/L (136-145); eGFR For Non-African Americans > 60 (> 60)
--- NOTE | 2018-03-12 10:19 | Internal Med Progress Note ---
Date of Encounter: 03/12/18 Time of Encounter: 09:45 - Assessment and plan (1) CVA (cerebral vascular accident) Current Visit: Yes Status: Acute Assessment and plan: Continue routine care/management per PT/OT/ST. Continue TF given NPO requirement. Qualifiers: CVA mechanism: unspecified Qualified Code(s): I63.9 - Cerebral infarction, unspecified (2) Dysphasia Current Visit: Yes Status: Acute Assessment and plan: Continue TF, but will adjust amount over the weekend so the patient does not feel too overwhelmed. Will continue to monitor I&O and intervene as appropriate. Appreciate nutrition's input. (3) HTN (hypertension) Current Visit: Yes Status: Acute Qualifiers: Hypertension type: essential hypertension Qualified Code(s): I10 - Essential (primary) hypertension (4) Seizures Current Visit: Yes Status: Chronic Assessment and plan: Continue current AED (5) Weakness Current Visit: Yes Status: Acute Assessment and plan: Likely 2/2 therapy, but will obtain LFT, CK, and manage statin therapy accordingly. - Time Spent With Patient less than 15 minutes - Subjective Interval history: "Thumb up" when asked how he was feeling. Reports feeling weak and wonders if it can be caused by his statin. - Constitutional Vitals: Temp Pulse Resp BP Pulse Ox 98.1 F 76 16 109/68 94 03/12/18 07:02 03/12/18 07:02 03/12/18 07:02 03/12/18 07:02 03/12/18 07:02 General appearance: Present: A&O X 3, pleasant, no acute distress, answers questions appropriately Exam: Gen: Alert, non-verbal, NAD. Communicating through typing. HEENT: NCAT. Neck: No palpable lymphadenopathy or thyromegaly. CV: RRR, S1S2. No murmur. Capillary refill < 2 seconds. Pulm: CTAB. Abd: (+)BS. NDNT. Neuro: Left facial droop, LUE weakness, and LLE weakness noted. Skin: No rash. Ext: No pitting edema. Internal Medicine: Result - Labs CBC & Chem 7: 03/12/18 08:40 03/12/18 08:40 Labs: Short CBC 03/12/18 Range/Units 08:40 WBC 6.8 (4.3-11.1) K/mcL Hgb 13.1 (12.9-16.9) g/dL Hct 39.0 (37.5-50.1) % Plt Count 260 (140-400) K/mcL Neutrophils # 3.9 (1.6-8.9) K/mcL BMP 03/12/18 08:40 Sodium 137 Potassium 3.6 Chloride 99 Carbon Dioxide 34 H BUN 17 Creatinine 0.72 Glucose 88 Calcium 9.0 - VTE Documentation of Mechanical Device: Graduated compression elastic hosiery Consult Discharge Plan - Plan Referrals: Arias Barth MD [Primary Care Provider] -
[2018-03-12 11:22] LABS: Albumin 3.8 g/dL (3.5-5.7); Albumin/Globulin Ratio 1.3 (1.1-2.2); Bilirubin,Indirect 0.2 mg/dL (0.0-1.2); Bilirubin,Total 0.2 mg/dL (0.3-1.0); Total Protein 6.8 g/dL (6.4-8.9)
[2018-03-12] MEDS: Melatonin 3 MG TABLET GTUBE SCH (21:02)
[2018-03-12] MEDS: traZODone 50 MG TABLET GTUBE SCH (21:03)
[2018-03-13] MEDS: Metoclopramide 10 MG/10 ML UD.LIQ GTUBE SCH ×3 (06:44→18:58)
[2018-03-13] MEDS: levETIRAcetam 500 MG/5 ML UDC GTUBE SCH ×2 (09:41→21:55)
[2018-03-13] MEDS: Phenytoin Oral Susp 100 MG/4 ML UDC GTUBE SCH ×2 (09:41→21:55)
[2018-03-13] MEDS: Aspirin 81 MG TAB.CHEW GTUBE SCH (09:42)
--- NOTE | 2018-03-13 12:52 | Internal Med Progress Note ---
Date of Encounter: 03/13/18 Time of Encounter: 12:50 - Assessment and plan (1) CVA (cerebral vascular accident) Current Visit: Yes Status: Acute Assessment and plan: Continue PT, OT. Will follow progress. Continue feeding through G-tube. No new neurological deficits at this time. Qualifiers: CVA mechanism: unspecified Qualified Code(s): I63.9 - Cerebral infarction, unspecified (2) Dysphasia Current Visit: Yes Status: Acute Assessment and plan: Using alternative forms for communication appropriately. (3) HTN (hypertension) Current Visit: Yes Status: Acute Assessment and plan: Controlled with current medication. Monitor blood pressure. Qualifiers: Hypertension type: essential hypertension Qualified Code(s): I10 - Essential (primary) hypertension (4) Seizures Current Visit: Yes Status: Chronic Assessment and plan: Controlled. Continue current medication. (5) Glioblastoma multiforme Current Visit: Yes Status: Acute - Time Spent With Patient less than 15 minutes - Subjective Interval history: participating well with therapy. Denies complaints. Patient complaining of reflux in states his stomach feel sour. Patient states that we are giving too much to feed with the water too often. Will discuss with dietitian. States last bowel movement was 2 days ago. Status as normal for him to go 3 to 4 days. - Constitutional Vitals: Temp Pulse Resp BP Pulse Ox 98.0 F 73 16 113/74 98 03/13/18 08:42 03/13/18 08:42 03/13/18 08:42 03/13/18 08:42 03/13/18 08:42 General appearance: Present: A&O X 3, pleasant, no acute distress, answers questions appropriately Exam: aPhasic - Head Head exam: Present: atraumatic, normocephalic - Eye Eye exam: Present: PERRL, conjuntiva pink, sclera anicteric Pupils: Present: PERRL - Neck Neck exam general surgery: Present: supple, trachea midline. Absent: lymphadenopathy - Respiratory Respiratory exam: Present: CTAB. Absent: accessory muscle use, rales, rhonchi, wheezes - Cardiovascular Cardiovascular exam: Present: RRR, +S1, +S2. Absent: diastolic murmur, gallop, rubs, systolic murmur - GI/Abdominal GI/Abdominal exam: Present: normal bowel sounds, soft, no peritoneal signs. Absent: distended, tenderness Additional comments: G-tube site non-indurated - Extremities Exam Extremities exam: Present: warm, radial pulses palpable and symmetrical. Absent : calf tenderness, cyanotic, pedal edema - Neurological Exam Neurological exam: Present: CN II-XII intact, oriented X3, no focal deficits. Absent: pronater drift, facial droop, speech deficit - Skin Skin exam: Present: dry, intact Internal Medicine: Result - Labs CBC & Chem 7: 03/12/18 08:40 03/12/18 08:40 - VTE Documentation of Mechanical Device: Graduated compression elastic hosiery Consult Discharge Plan - Plan Referrals: Arias Barth MD [Primary Care Provider] -
[2018-03-13] MEDS: traZODone 50 MG TABLET GTUBE SCH (21:55)
[2018-03-13] MEDS: Melatonin 3 MG TABLET GTUBE SCH (21:56)
--- NOTE | 2018-03-14 08:35 | Internal Med Progress Note ---
Date of Encounter: 03/14/18 Time of Encounter: 08:33 - Assessment and plan (1) CVA (cerebral vascular accident) Current Visit: Yes Status: Acute Assessment and plan: Continue PT, OT. Will follow progress. Continue feeding through G-tube. No new neurological deficits at this time. Qualifiers: CVA mechanism: unspecified Qualified Code(s): I63.9 - Cerebral infarction, unspecified (2) Dysphasia Current Visit: Yes Status: Acute Assessment and plan: Using alternative forms for communication appropriately. (3) HTN (hypertension) Current Visit: Yes Status: Acute Assessment and plan: Controlled with current medication. Monitor blood pressure. Qualifiers: Hypertension type: essential hypertension Qualified Code(s): I10 - Essential (primary) hypertension (4) Seizures Current Visit: Yes Status: Chronic Assessment and plan: Controlled. Continue current medication. (5) Glioblastoma multiforme Current Visit: Yes Status: Acute - Time Spent With Patient 25 - 35 minutes - Subjective Interval history: participating well with therapy. Denies complaints. States he slept well. Trialed giving last tube feeding but more frequently last night. States he felt much better. Will discuss with dietitian. States last bowel movement was 3 days ago. States as normal for him to go 3 to 4 days. - Constitutional Vitals: Temp Pulse Resp BP Pulse Ox 98.2 F 75 17 102/67 93 03/14/18 06:52 03/14/18 06:52 03/14/18 06:52 03/14/18 06:52 03/14/18 06:52 General appearance: Present: A&O X 3, pleasant, no acute distress, answers questions appropriately - Head Head exam: Present: atraumatic, normocephalic - Eye Eye exam: Present: PERRL, conjuntiva pink, sclera anicteric Pupils: Present: PERRL - Neck Neck exam general surgery: Present: supple, trachea midline. Absent: lymphadenopathy - Respiratory Respiratory exam: Present: CTAB. Absent: accessory muscle use, rales, rhonchi, wheezes - Cardiovascular Cardiovascular exam: Present: RRR, +S1, +S2. Absent: diastolic murmur, gallop, rubs, systolic murmur - GI/Abdominal GI/Abdominal exam: Present: normal bowel sounds, soft, no peritoneal signs. Absent: distended, tenderness Additional comments: G-tube site non-indurated - Extremities Exam Extremities exam: Present: warm, radial pulses palpable and symmetrical. Absent : calf tenderness, cyanotic, pedal edema - Neurological Exam Neurological exam: Present: CN II-XII intact, oriented X3, no focal deficits. Absent: pronater drift, facial droop, speech deficit - Skin Skin exam: Present: dry, intact Internal Medicine: Result - Labs CBC & Chem 7: 03/12/18 08:40 03/12/18 08:40 - VTE Documentation of Mechanical Device: Graduated compression elastic hosiery Consult Discharge Plan - Plan Referrals: Arias Barth MD [Primary Care Provider] -
[2018-03-14] MEDS: Phenytoin Oral Susp 100 MG/4 ML UDC GTUBE SCH ×2 (09:02→20:44)
[2018-03-14] MEDS: levETIRAcetam 500 MG/5 ML UDC GTUBE SCH ×2 (09:02→20:44)
[2018-03-14] MEDS: Aspirin 81 MG TAB.CHEW GTUBE SCH ×2 (09:03→20:44)
[2018-03-14] MEDS: Metoclopramide 10 MG/10 ML UD.LIQ GTUBE SCH ×3 (09:03→18:19)
[2018-03-14] MEDS: traZODone 50 MG TABLET GTUBE SCH (20:43)
[2018-03-14] MEDS: Melatonin 3 MG TABLET GTUBE SCH (20:43)
[2018-03-14] MEDS: Niacin (24 HR) 500 MG TAB.ER.24H PO SCH (20:44)
[2018-03-15 06:04] LABS: Chol/HDL Ratio 3.2 (0-4.9)
[2018-03-15] MEDS: Phenytoin Oral Susp 100 MG/4 ML UDC GTUBE SCH ×2 (08:09→21:03)
[2018-03-15] MEDS: Metoclopramide 10 MG/10 ML UD.LIQ GTUBE SCH ×3 (08:10→15:29)
[2018-03-15] MEDS: levETIRAcetam 500 MG/5 ML UDC GTUBE SCH ×2 (08:10→21:04)
[2018-03-15] MEDS: Aspirin 81 MG TAB.CHEW GTUBE SCH (08:11)
--- NOTE | 2018-03-15 11:52 | Internal Med Progress Note ---
Date of Encounter: 03/15/18 Time of Encounter: 11:50 - Assessment and plan (1) CVA (cerebral vascular accident) Current Visit: Yes Status: Acute Assessment and plan: No acute issues noted. No acute deficits noted on neurological exam. No complaints. Patient remnains nonverbal and with dysphasia. Continued NPO with nutrition per TF. Patient has MDS that is being arranged for further evaluation of dysphagia. Continued slight left hemiparesis. Continues to progress with PT/OT. Qualifiers: CVA mechanism: unspecified Qualified Code(s): I63.9 - Cerebral infarction, unspecified (2) Dysphasia Current Visit: Yes Status: Acute Assessment and plan: Continue with therapy and TF per GT. Patient currently is receiving his [employer] feedings which interested-type feeding that he received during the past year at home. Patient states that he feels he is tolerating these feedings better. Patient has a MBS that has been ordered to evaluate his dysphagia. We will continue with current plan of care (3) HTN (hypertension) Current Visit: Yes Status: Acute Assessment and plan: VS stable. Continue on current meds. Qualifiers: Hypertension type: essential hypertension Qualified Code(s): I10 - Essential (primary) hypertension (4) Seizures Current Visit: Yes Status: Chronic Assessment and plan: No noted seizure activity or acute neuro deficits noted. Continue on current AED meds. - Time Spent With Patient less than 15 minutes - Subjective Interval history: Patient is nonverbal, but indicates no issues. Patient communicates by spelling needs on his phone. Denies any dypnea or discomforts. Patient reportedly has had a decrease in feedings recently due to relatively high residuals. Patient currently appears to be tolerating feedings well and is without complaints of abdominal cramping or nausea. - Constitutional Vitals: Temp Pulse Resp BP Pulse Ox 98.1 F 85 18 104/68 92 03/15/18 07:14 03/15/18 07:14 03/15/18 07:14 03/15/18 07:14 03/15/18 07:14 General appearance: Present: A&O X 3, pleasant, no acute distress, answers questions appropriately Exam: Patient is not verbal due to previous CVAs. Patient communicates by typing on his - Head Head exam: Present: atraumatic, normocephalic - Eye Eye exam: Present: PERRL, conjuntiva pink, sclera anicteric Pupils: Present: PERRL - Neck Neck exam general surgery: Present: supple, trachea midline. Absent: lymphadenopathy - Respiratory Respiratory exam: Present: CTAB. Absent: accessory muscle use, rales, rhonchi, wheezes - Cardiovascular Cardiovascular exam: Present: RRR, +S1, +S2. Absent: diastolic murmur, gallop, rubs, systolic murmur - GI/Abdominal GI/Abdominal exam: Present: normal bowel sounds, soft, no peritoneal signs. Absent: distended, tenderness Additional comments: Gastrostomy tube appears healthy at insertion site. - Extremities Exam Extremities exam: Present: warm, radial pulses palpable and symmetrical. Absent : calf tenderness, cyanotic, pedal edema - Neurological Exam Neurological exam: Present: CN II-XII intact, oriented X3. Absent: pronater drift, facial droop, speech deficit Additional comments: Patient remains nonverbal after a previous left CVA. Patient also has dysphagia and currently receives complete nutrition per tube feeding via gastrostomy tube. Patient continues to have left hemiparesis secondary to debulking of a glio tumor was located to the right temporal lobe. Patient has deformity to the right skull secondary to several craniotomies in the past. Left extremities show MS of 4/5 and RE MS 5/5. - Skin Skin exam: Present: dry, intact Internal Medicine: Result - Labs CBC & Chem 7: 03/12/18 08:40 03/12/18 08:40 - VTE Documentation of Mechanical Device: Graduated compression elastic hosiery Consult Discharge Plan - Plan Referrals: Arias Barth MD [Primary Care Provider] -
[2018-03-15] MEDS: Niacin (24 HR) 500 MG TAB.ER.24H PO SCH (21:02)
[2018-03-15] MEDS: traZODone 50 MG TABLET GTUBE SCH (21:03)
[2018-03-15] MEDS: Melatonin 3 MG TABLET GTUBE SCH (21:03)
[2018-03-16] MEDS: Metoclopramide 10 MG/10 ML UD.LIQ GTUBE SCH ×3 (09:37→17:30)
[2018-03-16] MEDS: levETIRAcetam 500 MG/5 ML UDC GTUBE SCH ×2 (09:37→22:02)
[2018-03-16] MEDS: Phenytoin Oral Susp 100 MG/4 ML UDC GTUBE SCH ×2 (09:37→22:02)
[2018-03-16] MEDS: Aspirin 81 MG TAB.CHEW GTUBE SCH (09:43)
--- NOTE | 2018-03-16 14:00 | Internal Med Progress Note ---
Date of Encounter: 03/16/18 Time of Encounter: 13:58 - Assessment and plan (1) CVA (cerebral vascular accident) Current Visit: Yes Status: Acute Assessment and plan: No acute issues noted. No acute deficits noted on neurological exam. No complaints. Patient remnains nonverbal and with dysphasia. Continued NPO with nutrition per TF. Patient has MDS that arranged for further evaluation of dysphagia. Continued slight left hemiparesis. Continues to progress with PT/OT. Qualifiers: CVA mechanism: unspecified Qualified Code(s): I63.9 - Cerebral infarction, unspecified (2) Dysphasia Current Visit: Yes Status: Acute Assessment and plan: Continue with therapy and TF per GT. Patient currently is receiving his [employer] feedings which interested-type feeding that he received during the past year at home. Patient states that he feels he is tolerating these feedings better. Patient has a MBS that has been ordered to evaluate his dysphagia. We will continue with current plan of care (3) HTN (hypertension) Current Visit: Yes Status: Acute Assessment and plan: VS stable. Continue on current meds. Qualifiers: Hypertension type: essential hypertension Qualified Code(s): I10 - Essential (primary) hypertension (4) Seizures Current Visit: Yes Status: Chronic Assessment and plan: No noted seizure activity or acute neuro deficits noted. Continue on current AED meds. - Time Spent With Patient less than 15 minutes - Subjective Interval history: Patient is nonverbal, but indicates no issues. Patient communicates by spelling needs on his phone. Denies any dypnea or discomforts. Patient reportedly has had a decrease in feedings recently due to relatively high residuals. Patient currently appears to be tolerating feedings well and is without complaints of abdominal cramping or nausea. - Constitutional Vitals: Temp Pulse Resp BP Pulse Ox 98.1 F 91 16 102/58 97 03/16/18 06:52 03/16/18 06:52 03/16/18 06:52 03/16/18 06:52 03/16/18 06:52 General appearance: Present: A&O X 3, pleasant, no acute distress, answers questions appropriately - Head Head exam: Present: atraumatic, normocephalic - Eye Eye exam: Present: PERRL, conjuntiva pink, sclera anicteric Pupils: Present: PERRL - Neck Neck exam general surgery: Present: supple, trachea midline. Absent: lymphadenopathy - Respiratory Respiratory exam: Present: CTAB. Absent: accessory muscle use, rales, rhonchi, wheezes - Cardiovascular Cardiovascular exam: Present: RRR, +S1, +S2. Absent: diastolic murmur, gallop, rubs, systolic murmur - GI/Abdominal GI/Abdominal exam: Present: normal bowel sounds, soft, no peritoneal signs. Absent: distended, tenderness Additional comments: Gastrostomy tube with insertion site appears healthy - Extremities Exam Extremities exam: Present: warm, radial pulses palpable and symmetrical. Absent : calf tenderness, cyanotic, pedal edema - Neurological Exam Neurological exam: Present: CN II-XII intact, oriented X3. Absent: pronater drift, facial droop, speech deficit Additional comments: Patient shows left hemiparesis with left extremities at 4/5 muscle strength and right extremities at 5/5. Patient remains nonverbal after a recent CVA and has dysphagia, resulting in total nutrition by tube feeding. 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 - Skin Skin exam: Present: dry, intact Internal Medicine: Result - Labs CBC & Chem 7: 03/12/18 08:40 03/12/18 08:40 - VTE Documentation of Mechanical Device: Graduated compression elastic hosiery Consult Discharge Plan - Plan Referrals: Arias Barth MD [Primary Care Provider] -
[2018-03-16] MEDS: Melatonin 3 MG TABLET GTUBE SCH (21:55)
[2018-03-16] MEDS: traZODone 50 MG TABLET GTUBE SCH (21:56)
[2018-03-16] MEDS: Niacin (24 HR) 500 MG TAB.ER.24H PO SCH (22:01)
[2018-03-17] MEDS: Metoclopramide 10 MG/10 ML UD.LIQ GTUBE SCH ×3 (06:34→17:44)
[2018-03-17] MEDS: Aspirin 81 MG TAB.CHEW GTUBE SCH (09:00)
[2018-03-17] MEDS: levETIRAcetam 500 MG/5 ML UDC GTUBE SCH ×2 (09:00→21:36)
[2018-03-17] MEDS: Phenytoin Oral Susp 100 MG/4 ML UDC GTUBE SCH ×2 (09:00→21:36)
--- NOTE | 2018-03-17 15:22 | Internal Med Progress Note ---
Date of Encounter: 03/17/18 Time of Encounter: 15:19 - Assessment and plan (1) CVA (cerebral vascular accident) Current Visit: Yes Status: Acute Assessment and plan: We will continue therapies as planned. Modified barium swallow as planned on Monday (2 days from now). Qualifiers: CVA mechanism: unspecified Qualified Code(s): I63.9 - Cerebral infarction, unspecified (2) Dysphasia Current Visit: Yes Status: Acute Assessment and plan: See above. (3) HTN (hypertension) Current Visit: Yes Status: Acute Assessment and plan: Clinically stable. We will continue home regimen and follow. Qualifiers: Hypertension type: essential hypertension Qualified Code(s): I10 - Essential (primary) hypertension (4) Seizures Current Visit: Yes Status: Chronic Assessment and plan: No evidence of seizures, currently. (5) Glioblastoma multiforme Current Visit: Yes Status: Acute Assessment and plan: This is apparently in remission since 2003. He is status post craniotomy 3 as well as radiation. - Subjective Interval history: Patient is doing well without complaint. He is to go for a modified barium swallow on Monday at 9:15. He denies other problems and moved his bowels, last evening. Patient has no complaint of chest discomfort, dyspnea, orthopnea, palpitations, nausea or vomiting, constipation or diarrhea, other changes in bowel habits, difficulty with urination, rash or itching, or other new complaints, except as mentioned above. Review of systems is otherwise negative. I discussed management of her care with nursing staff. - Constitutional Vitals: Temp Pulse Resp BP Pulse Ox 98 F 82 17 106/71 94 03/17/18 07:06 03/17/18 07:06 03/17/18 07:06 03/17/18 07:06 03/17/18 07:06 General appearance: Present: pleasant, answers questions appropriately Exam: Examination: (Except as mentioned above): General: In no apparent distress. Alert and oriented 3. Nondiaphoretic. Head: Atraumatic and normocephalic. Respiratory: No use of accessory muscles. Lungs are clear throughout. Normal airflow. Cardiovascular: Regular rate and rhythm without murmur appreciated. Abdomen: Bowel sounds are normal. No hepatosplenomegaly mass or tenderness appreciated. PEG tube is intact as before with no localized sign of infection or drainage. Obese and therefore difficult to palpate deeply. Extremities: No cyanosis clubbing or edema. Skin: Warm and non-diaphoretic with no new lesions noted. Internal Medicine: Result - Labs CBC & Chem 7: 03/12/18 08:40 03/12/18 08:40 - VTE Documentation of Mechanical Device: Graduated compression elastic hosiery Consult Discharge Plan - Plan Referrals: Arias Barth MD [Primary Care Provider] -
[2018-03-17] MEDS: Melatonin 3 MG TABLET GTUBE SCH (21:36)
[2018-03-17] MEDS: Niacin (24 HR) 500 MG TAB.ER.24H PO SCH (21:37)
[2018-03-17] MEDS: traZODone 50 MG TABLET GTUBE SCH (21:37)
[2018-03-18] MEDS: Metoclopramide 10 MG/10 ML UD.LIQ GTUBE SCH ×3 (06:44→18:30)
--- NOTE | 2018-03-18 09:37 | Internal Med Progress Note ---
Date of Encounter: 03/18/18 Time of Encounter: 09:35 - Assessment and plan (1) CVA (cerebral vascular accident) Current Visit: Yes Status: Acute Assessment and plan: Continue PT, OT. Will follow progress. Continue feeding through G-tube. No new neurological deficits at this time. Qualifiers: CVA mechanism: unspecified Qualified Code(s): I63.9 - Cerebral infarction, unspecified (2) Dysphasia Current Visit: Yes Status: Acute Assessment and plan: Using alternative forms for communication appropriately. (3) HTN (hypertension) Current Visit: Yes Status: Acute Assessment and plan: Controlled with current medication. Monitor blood pressure. Qualifiers: Hypertension type: essential hypertension Qualified Code(s): I10 - Essential (primary) hypertension (4) Seizures Current Visit: Yes Status: Chronic Assessment and plan: Controlled. Continue current medication. (5) Glioblastoma multiforme Current Visit: Yes Status: Acute (6) Dysphagia as late effect of stroke Current Visit: Yes Status: Acute Assessment and plan: Continue enternal feeds. Scheduled for modified barium swallow tomorrow. - Time Spent With Patient less than 15 minutes - Subjective Interval history: participating well with therapy. Denies complaints. States he slept well. Plans for modified barium swallow tomorrow. Family training schedule with therapy for March 18. - Constitutional Vitals: Temp Pulse Resp BP Pulse Ox 98.0 F 86 18 104/71 91 03/18/18 07:37 03/18/18 07:37 03/18/18 07:37 03/18/18 07:37 03/18/18 07:37 General appearance: Present: A&O X 3, pleasant, answers questions appropriately - Head Head exam: Present: atraumatic, normocephalic - Eye Eye exam: Present: PERRL, conjuntiva pink, sclera anicteric Pupils: Present: PERRL - Neck Neck exam general surgery: Present: supple, trachea midline. Absent: lymphadenopathy - Respiratory Respiratory exam: Present: CTAB. Absent: accessory muscle use, rales, rhonchi, wheezes - Cardiovascular Cardiovascular exam: Present: RRR, +S1, +S2. Absent: diastolic murmur, gallop, rubs, systolic murmur - GI/Abdominal GI/Abdominal exam: Present: normal bowel sounds, soft, no peritoneal signs. Absent: distended, tenderness Additional comments: G-tube site non-indurated. - Extremities Exam Extremities exam: Present: warm, radial pulses palpable and symmetrical. Absent : calf tenderness, cyanotic, pedal edema Additional comments: Left-sided weakness. - Neurological Exam Neurological exam: Present: CN II-XII intact, oriented X3, no focal deficits. Absent: pronater drift, facial droop, speech deficit - Skin Skin exam: Present: dry, intact Internal Medicine: Result - Labs CBC & Chem 7: 03/12/18 08:40 03/12/18 08:40 - VTE Documentation of Mechanical Device: Graduated compression elastic hosiery Consult Discharge Plan - Plan Referrals: Arias Barth MD [Primary Care Provider] -
[2018-03-18] MEDS: Phenytoin Oral Susp 100 MG/4 ML UDC GTUBE SCH ×2 (09:45→21:19)
[2018-03-18] MEDS: Aspirin 81 MG TAB.CHEW GTUBE SCH (09:45)
[2018-03-18] MEDS: levETIRAcetam 500 MG/5 ML UDC GTUBE SCH ×2 (09:45→21:19)
[2018-03-18] MEDS: Melatonin 3 MG TABLET GTUBE SCH (21:17)
[2018-03-18] MEDS: traZODone 50 MG TABLET GTUBE SCH (21:18)
[2018-03-19] MEDS: Niacin (24 HR) 500 MG TAB.ER.24H PO SCH (00:33)
[2018-03-19 06:24] LABS: Basophils # 0.1 K/mcL (0.0-0.2); Basophils % 0.8 %; Eosinophils # 0.1 K/mcL (0.0-0.6); Eosinophils % 1.7 %; Hematocrit 38.4 % (37.5-50.1); Hemoglobin 12.9 g/dL (12.9-16.9); Immature Granulocytes % 0.2 % (0-4); Lymphocytes # 2.4 K/mcL (0.6-4.6); Lymphocytes % 36.8 %; Mean Corpuscular HGB Conc 33.6 g/dL (31.6-35.5); Mean Corpuscular Hemoglobin 30.7 pg (28.0-33.3); Mean Corpuscular Volume 91.4 fL (83.0-100.0); Mean Platelet Volume 11.4 fL (9.4-12.4); Monocytes # 0.7 K/mcL (0.0-1.3); Monocytes % 10.1 %; Neutrophils # 3.3 K/mcL (1.6-8.9); Platelet Count 243 K/mcL (140-400); Red Cell Distribution Width 12.8 % (11.5-14.5); Segmented Neutrophils % 50.4 %
[2018-03-19 06:37] LABS: BUN/Creatinine Ratio 22 (6-26); Blood Urea Nitrogen 16 mg/dL (6-20); Calcium 9.1 mg/dL (8.6-10.3); Carbon Dioxide 33 mEq/L (23-29); Chloride 98 mEq/L (98-107); Glucose 84 mg/dL (70-105); Osmolality,Calculated 282 (280-300); Potassium 3.5 mEq/L (3.5-5.1); Sodium 136 mEq/L (136-145); eGFR For Non-African Americans > 60 (> 60)
[2018-03-19] MEDS: Metoclopramide 10 MG/10 ML UD.LIQ GTUBE SCH ×3 (06:38→15:24)
[2018-03-19] MEDS: levoFLOXacin 500 MG TABLET PO SCH (08:54)
[2018-03-19] MEDS: Aspirin 81 MG TAB.CHEW GTUBE SCH (08:54)
[2018-03-19] MEDS: Phenytoin Oral Susp 100 MG/4 ML UDC GTUBE SCH ×2 (09:05→21:27)
[2018-03-19] MEDS: levETIRAcetam 500 MG/5 ML UDC GTUBE SCH ×2 (09:06→21:27)
--- NOTE | 2018-03-19 11:57 | Internal Med Progress Note ---
Date of Encounter: 03/19/18 Time of Encounter: 11:56 - Assessment and plan (1) CVA (cerebral vascular accident) Current Visit: Yes Status: Acute Qualifiers: CVA mechanism: unspecified Qualified Code(s): I63.9 - Cerebral infarction, unspecified (2) Dysphasia Current Visit: Yes Status: Acute (3) HTN (hypertension) Current Visit: Yes Status: Acute Qualifiers: Hypertension type: essential hypertension Qualified Code(s): I10 - Essential (primary) hypertension (4) Seizures Current Visit: Yes Status: Chronic (5) Glioblastoma multiforme Current Visit: Yes Status: Acute - Subjective Interval history: Patient is away at modified barium swallow so unavailable for a visit, today. - Constitutional Vitals: Temp Pulse Resp BP Pulse Ox 98.6 F 70 17 102/67 98 03/19/18 07:20 03/19/18 07:20 03/19/18 07:20 03/19/18 07:20 03/19/18 07:20 General appearance: Present: A&O X 3, pleasant, answers questions appropriately Internal Medicine: Result - Labs CBC & Chem 7: 03/19/18 04:45 03/19/18 04:45 Labs: Short CBC 03/19/18 Range/Units 04:45 WBC 6.6 (4.3-11.1) K/mcL Hgb 12.9 (12.9-16.9) g/dL Hct 38.4 (37.5-50.1) % Plt Count 243 (140-400) K/mcL Neutrophils # 3.3 (1.6-8.9) K/mcL BMP 03/19/18 04:45 Sodium 136 Potassium 3.5 Chloride 98 Carbon Dioxide 33 H BUN 16 Creatinine 0.74 Glucose 84 Calcium 9.1 - VTE Documentation of Mechanical Device: Graduated compression elastic hosiery Consult Discharge Plan - Plan Referrals: Arias Barth MD [Primary Care Provider] -
[2018-03-19] MEDS: traZODone 50 MG TABLET GTUBE SCH (21:27)
[2018-03-19] MEDS: Melatonin 3 MG TABLET GTUBE SCH (21:27)
[2018-03-20] MEDS: Metoclopramide 10 MG/10 ML UD.LIQ GTUBE SCH ×3 (08:29→18:24)
[2018-03-20] MEDS: levETIRAcetam 500 MG/5 ML UDC GTUBE SCH ×2 (08:29→21:14)
[2018-03-20] MEDS: levoFLOXacin 500 MG TABLET PO SCH (08:29)
[2018-03-20] MEDS: Phenytoin Oral Susp 100 MG/4 ML UDC GTUBE SCH ×2 (08:29→21:14)
[2018-03-20] MEDS: Aspirin 81 MG TAB.CHEW GTUBE SCH (08:29)
--- NOTE | 2018-03-20 10:22 | Internal Med Progress Note ---
Date of Encounter: 03/20/18 Time of Encounter: 10:20 - Assessment and plan (1) CVA (cerebral vascular accident) Current Visit: Yes Status: Acute Assessment and plan: Continue PT, OT. Will follow progress. Continue feeding through G-tube. No new neurological deficits at this time. Qualifiers: CVA mechanism: unspecified Qualified Code(s): I63.9 - Cerebral infarction, unspecified (2) Dysphasia Current Visit: Yes Status: Acute Assessment and plan: Using alternative forms for communication appropriately. (3) HTN (hypertension) Current Visit: Yes Status: Acute Assessment and plan: Controlled with current medication. Monitor blood pressure. Qualifiers: Hypertension type: essential hypertension Qualified Code(s): I10 - Essential (primary) hypertension (4) Seizures Current Visit: Yes Status: Chronic Assessment and plan: Controlled. Continue current medication. (5) Glioblastoma multiforme Current Visit: Yes Status: Acute (6) Dysphagia as late effect of stroke Current Visit: Yes Status: Acute Assessment and plan: Continue enternal feeds. Had a modified barium swallow yesterday. Awaiting results.. - Subjective Interval history: participating well with therapy. Ambulated in hallway with PT yesterday. Family scheduled to be here today for family training with therapy. Denies complaints. - Constitutional Vitals: Temp Pulse Resp BP Pulse Ox 98.4 F 87 16 117/69 98 03/20/18 06:47 03/20/18 06:47 03/20/18 06:47 03/20/18 06:47 03/20/18 06:47 General appearance: Present: A&O X 3, pleasant, answers questions appropriately - Head Head exam: Present: atraumatic, normocephalic - Eye Eye exam: Present: PERRL, conjuntiva pink, sclera anicteric Pupils: Present: PERRL - Neck Neck exam general surgery: Present: supple, trachea midline. Absent: lymphadenopathy - Respiratory Respiratory exam: Present: CTAB. Absent: accessory muscle use, rales, rhonchi, wheezes - Cardiovascular Cardiovascular exam: Present: RRR, +S1, +S2. Absent: diastolic murmur, gallop, rubs, systolic murmur - GI/Abdominal GI/Abdominal exam: Present: normal bowel sounds, soft, no peritoneal signs. Absent: distended, tenderness Additional comments: G-tube site non-indurated. - Extremities Exam Extremities exam: Present: warm, radial pulses palpable and symmetrical. Absent : calf tenderness, cyanotic, pedal edema - Neurological Exam Neurological exam: Present: CN II-XII intact, oriented X3, no focal deficits. Absent: pronater drift, facial droop, speech deficit - Skin Skin exam: Present: dry, intact Internal Medicine: Result - Labs CBC & Chem 7: 03/19/18 04:45 03/19/18 04:45 - VTE Documentation of Mechanical Device: Graduated compression elastic hosiery Consult Discharge Plan - Plan Referrals: Arias Barth MD [Primary Care Provider] -
[2018-03-20] MEDS: Melatonin 3 MG TABLET GTUBE SCH (21:03)
[2018-03-20] MEDS: traZODone 50 MG TABLET GTUBE SCH (21:04)
[2018-03-21] MEDS: Metoclopramide 10 MG/10 ML UD.LIQ GTUBE SCH ×2 (06:31→11:46)
[2018-03-21 07:27] VITALS: BP 116/76
--- NOTE | 2018-03-21 07:55 | Discharge Summary ---
Date of Encounter: 03/21/18 Time of Encounter: 07:52 - Discharge Diagnosis (1) CVA (cerebral vascular accident) Priority: Primary Status: Acute Comments: Patient had a left ischemic CVA, resulting in a aphasia and dysphagia. 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 Patient continues to have deformity to the right skull from the craniotomy. Patient progressed well with physical therapy but continues to mainly use a wheelchair for mobilization. Patient has been noted to ambulate using a walker and assistance. Patient continues to have total nutrition by tube feedings via a gastrostomy tube. Patient will be discharged with a prescription for niacin and aspirin taken through his gastrostomy tube. Patient will continue with physical therapy as an outpatient. We will continue with follow-up with PCP Qualifiers: CVA mechanism: unspecified Qualified Code(s): I63.9 - Cerebral infarction, unspecified (2) Dysphasia Priority: Secondary Status: Acute Comments: Patient continues with total nutrition via tube feedings. Patient's continues with speech therapy and appears to be progressing. Patient had a MBS performed. Patient will be discharged to home with continued tube feeding. Patient will continue with speech therapy has an outpatient. (3) HTN (hypertension) Priority: Secondary Status: Acute Comments: No problems during his admission to this facility. Vital signs remained stable. Patient to continue with home medications after discharge. Patient will follow-up with PCP Qualifiers: Hypertension type: essential hypertension Qualified Code(s): I10 - Essential (primary) hypertension (4) Seizures Priority: Secondary Status: Chronic Comments: Patient showed no signs of seizure activity during her stay at this facility. Patient to continue with AED medications after discharge. Patient will continue with follow-up with PCP and neurology. Hospital course: Mr. Ybarra is a 42 year old male, who was admitted for rehabilitation due to deconditioning secondary to his having an acute left frontal CVA and a recent tumor debulking on the right frontal lobe several years ago, resulting in left hemiparesis. Patient also is nonverbal and has experienced dysphagia, remaining nothing by mouth with complete nutritional intake by gastrostomy tube. 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 Patient received chemotherapy treatments afterwards and annual CT scans over the past several years show no regrowth. Patient has a history of a [employer] shunt in place with recent CT scan showing no signs of hydrocephalus. 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 While at this facility patient progressed well with physical therapy and was noted to ambulate with a walker and assistance. Patient continues to use a wheelchair for his primary mobilization at this time. Patient continues with total nutrition by tube feeding and remains nothing by mouth. Patient progressed with speech therapy and will continue with sessions as an outpatient. Patient had MBS during his stay, which shows a continued need for therapy. No other acute events occurred during his stay at this facility. Vital signs remained stable. No acute neurological deficits were noted during her stay at this facility. Patient will be discharged home and continue physical therapy by outpatient. Patient is a continue follow-up with neurology and primary care physician. Discharge discussed with: patient Time spent discussing smoking cessation with patient: 3 to 10 minutes - Time Spent with Patient Total time spent providing and/or coordinating discharge services: Less than 30 minutes - Discharge Medications Home Medications: LevETIRAcetam [Levetiracetam] 1,000 mg GTUBE BID 11/27/15 [History] Acetaminophen [Tylenol] 650 mg GTUBE Q4HR PRN 03/01/18 [History] Amitriptyline [Elavil] 10 mg GTUBE HS 03/01/18 [History] Aspirin [Lo-Dose Aspirin EC] 81 mg GTUBE DAILY 03/01/18 [History] Atorvastatin Calcium [Lipitor] 20 mg GTUBE HS 03/01/18 [History] Donepezil HCl [Aricept] 10 mg GTUBE HS 03/01/18 [History] Metoclopramide [Reglan] 10 mg PO TIDAC 03/01/18 [History] Phenytoin Oral Susp [Dilantin Susp] 200 mg GTUBE BID 03/01/18 [History] Sucralfate [Carafate] 1 gm GTUBE QIDAC 03/01/18 [History] Allergies/Adverse Reactions: 3 Allergy/AdvReac Type Severity Reaction Status Date / Time codeine Allergy Hives Verified 03/01/18 20:56 Latex, Natural Rubber Allergy Hives Verified 03/01/18 21:05 lorazepam [From Ativan] Allergy Hives Verified 11/27/15 11:36 promethazine [From Phenergan] AdvReac Confusion Verified 03/01/18 21:05 Date of admission: 03/01/18 19:43 Primary care physician: Arias Barth MD Consults: 03/01/18 21:06 Consult to Nutrition [CONS] Routine Comment: Pt currently takes 2-avelino. Please review. Consulting Provider: NUTRITION Reason for Dietary Consult: Other Other:: Please consult to develop nutrition plan Consult to Occupational Therapy [CONS] Routine Comment: Evaluate, develop and implement POC Reason for Consult: Evaluate and treat Does patient have active BEDREST order?: No Is patient medically & hemodynamically stable?: Yes Patient assessed for mobility or mobilized this visit?: Yes Consult to Physical Medicine/Rehab [CONS] Routine Reason for Consult: Evaluate and treat Time Notified: 21:10 Call Completed: Yes Consult to Physical Therapy [CONS] Routine Comment: Evaluate, develop and implement POC Reason for Consult: Evaluate and treat Does patient have active BEDREST order?: No Is patient medically & hemodynamically stable?: Yes Patient assessed for mobility or mobilized this visit?: Yes Consult to Recreational Therapy [CONS] Routine Comment: Evaluate, develop and implement POC Consult to Residency Program Coordinator [CONS] Routine Reason for SW Consult: Evaluate please Consult to Speech Therapy [CONS] Routine Comment: Evaluate, develop and implement POC Reason for Consult: speech impairment Call Completed: Yes 03/19/18 13:58 Consult to Psychology [CONS] Routine Consulting Provider: Emma Garcia Reason for Consult: Possible depression; adjustment disorder Call Completed: No Discharging clinician: Sekou Miranda - Constitutional Vitals: Temp Pulse Resp BP Pulse Ox 97.8 F 67 16 116/76 97 03/21/18 07:26 03/21/18 07:26 03/21/18 07:26 03/21/18 07:26 03/21/18 07:26 General appearance: Present: A&O X 3, pleasant, answers questions appropriately Exam: Patient is a aphasic and unable to communicate complex communication by spelling words out on his phone. - Head Head exam: Present: atraumatic, normocephalic Additional comments: Patient shows deformity to the right skull secondary to several craniotomies performed in the past during debulking of a glioma cytoma - Eye Eye exam: Present: PERRL, conjuntiva pink, sclera anicteric Pupils: Present: PERRL - Neck Neck exam general surgery: Present: supple, trachea midline. Absent: lymphadenopathy - Respiratory Respiratory exam: Present: CTAB. Absent: accessory muscle use, rales, rhonchi, wheezes - Cardiovascular Cardiovascular exam: Present: RRR, +S1, +S2. Absent: diastolic murmur, gallop, rubs, systolic murmur - GI/Abdominal GI/Abdominal exam: Present: normal bowel sounds, soft, no peritoneal signs. Absent: distended, tenderness Additional comments: Gastrostomy tube in place with insertion site appearing healthy - Extremities Exam Extremities exam: Present: warm, radial pulses palpable and symmetrical. Absent : calf tenderness, cyanotic, pedal edema - Neurological Exam Neurological exam: Present: CN II-XII intact, oriented X3. Absent: pronater drift, facial droop, speech deficit Additional comments: Patient had a left ischemic CVA with residual aphasia and dysphagia. Patient's had a remote debulking of a Gliocytoma tumor on the right parietal area, resulting in left hemiparesis with muscle strength showing 4/5 for extension/ flexion at both proximal and distal. Right extremities show muscle strength 5/ 5. - Skin Skin exam: Present: dry, intact - Patient Status Disposition: Home, Self-Care Condition: Good Overall status at discharge: patient is not back to baseline - Discharge Instructions Follow Up With: Arias Barth MD [Primary Care Provider] - (Requested Follow up appointment, office will call you with appointment!) - Diet and Activity Activity: as per physical therapy, increase activity as tolerated Diet: low fat, low cholesterol, low salt diet - VTE Documentation of Mechanical Device: Graduated compression elastic hosiery
[2018-03-21] MEDS: Aspirin 81 MG TAB.CHEW GTUBE SCH (10:45)
[2018-03-21] MEDS: levoFLOXacin 500 MG TABLET PO SCH (10:45)
[2018-03-21] MEDS: levETIRAcetam 500 MG/5 ML UDC GTUBE SCH (10:45)
[2018-03-21] MEDS: Phenytoin Oral Susp 100 MG/4 ML UDC GTUBE SCH (10:45)
--- NOTE | 2018-03-21 11:11 | Consult Note ---
Date of Encounter: 03/21/18 Time of Encounter: 10:00 History of Present Illness Patient: new to practice Requesting Physician: Sekou Miranda MD History of present illness: Mr. Ybarra is a 42 year old male who was admitted for rehabilitation due to deconditioning secondary to his having an acute left frontal CVA and a recent tumor debulking on the right frontal lobe several years ago, resulting in left hemiparesis. Patient also is nonverbal and has experienced dysphagia, remaining nothing by mouth with complete nutritional intake by gastrostomy tube. 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 Patient received chemotherapy treatments afterwards and annual CT scans over the past several years show no regrowth. Patient has a history of a [employer] shunt in place with recent CT scan showing no signs of hydrocephalus. 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 CC: Sekou Miranda MD Past Med Surg Social Fam HX - Past Medical History Medical history: CVA, malignancy - Past Psychiatric History Psychiatric history: Reports: no psych history Family psychiatric history: Unknown Family Psychiatric History Details: Patient denies any suicidal/homicial ideation. Family History of Suicide: Unknown - Social History Smoking Status: Never smoker Smokeless Tobacco Status: No Alcohol use: rarely Drug use: none Occupational status: disabled Current living situation: With Family Activity Level: Wheelchair bound Recent Out of Country Travel Within the Last 8 Weeks: No Exposure or Possible Exposure to Illness During Travel: No Additional social history: Lives with parents. Has 4 friends that he socializes with. Medications & Allergies LevETIRAcetam [Levetiracetam] 1,000 mg GTUBE BID 11/27/15 [History] Acetaminophen [Tylenol] 650 mg GTUBE Q4HR PRN 03/01/18 [History] Amitriptyline [Elavil] 10 mg GTUBE HS 03/01/18 [History] Aspirin [Lo-Dose Aspirin EC] 81 mg GTUBE DAILY 03/01/18 [History] Atorvastatin Calcium [Lipitor] 20 mg GTUBE HS 03/01/18 [History] Donepezil HCl [Aricept] 10 mg GTUBE HS 03/01/18 [History] Metoclopramide [Reglan] 10 mg PO TIDAC 03/01/18 [History] Phenytoin Oral Susp [Dilantin Susp] 200 mg GTUBE BID 03/01/18 [History] Sucralfate [Carafate] 1 gm GTUBE QIDAC 03/01/18 [History] Aspirin Enteric Coated [Aspirin EC] 81 mg PO BID #120 tablet. 03/21/18 [Rx] Niacinamide [Niacin] 500 mg PO 1-2XD 60 Days #120 tablet 03/21/18 [Rx] 3 Allergy/AdvReac Type Severity Reaction Status Date / Time codeine Allergy Hives Verified 03/01/18 20:56 Latex, Natural Rubber Allergy Hives Verified 03/01/18 21:05 lorazepam [From Ativan] Allergy Hives Verified 11/27/15 11:36 promethazine [From Phenergan] AdvReac Confusion Verified 03/01/18 21:05 Review of Systems Constitutional: Denies: fever, chills, weakness, weight change Eyes: Denies: eye pain, vision change Ears, Nose, Throat: Denies: ear pain, throat pain, dental pain, hearing loss, congestion Cardiovascular: Denies: chest pain, palpitations, dyspnea on exertion Respiratory: Denies: cough, dyspnea, wheezes Gastrointestinal: Denies: abdominal pain, nausea, vomiting, diarrhea, constipation Genitourinary male: Denies: urgency, dysuria, frequency, genital lesions Musculoskeletal: Denies: joint swelling, joint pain Integumentary: Denies: rash, lesions, pruritus Neurological: Denies: headache, weakness, numbness, memory loss Psychiatric: Reports: depression Endocrine: Denies: fatigue, heat or cold intolerance Hematologic/Lymphatic: Denies: easy bruising, lymphadenopathy Allergic/Immunologic: Denies: urticaria, itchy eyes Psychiatry Exam - Constitutional Vitals: Temp Pulse Resp BP Pulse Ox 97.8 F 67 16 116/76 97 03/21/18 07:26 03/21/18 07:26 03/21/18 07:26 03/21/18 07:26 03/21/18 07:26 General appearance: age & developmentally appropriate, well-groomed, well- nourished - Musculoskeletal Gait: unsteady Station: slouched Strength & Tone: other - Psychiatric Patient Orientation: Yes Person, Yes Time, Yes Place Level of alertness: Alert Behavior: calm, cooperative Psychomotor activity: Normal Eye Contact: Maintains Eye Contact Mood Description: Labile Patient description of mood: States his mood is "usually good, but sometimes depressed" He became tearful discussing his current situation and changes in living situation and abilities since his CVA. Affect description: congruent with mood, full range Speech Volume: Normal, No speech Speech pattern: non-verbal, other Language & Vocabulary: consistent with education Thought Process: Linear, Goal Oriented Thought Content: No Suicidal ideation, No Homicidal ideation, No Overt delusions Perceptual Disturbances: No Auditory hallucinations, No Visual hallucinations Attention Span Ability: Capable of Focused Attention (Able to perform 6 digits forward; 4 digits backwards; spell WORLD forwards/backwards; Knew president, previous president, not governor) Memory Description: Recent Intact (3/3 words after repetition; 2/3 after 5 min delay) Patient Reliability: Reliable Historian Fund of knowledge: Yes abstraction ability, Yes aware of current events Intelligence Estimate: Average Judgment: Good Insight: Partial Results - Labs Labs: Laboratory Last Values WBC 6.6 K/mcL (4.3-11.1) 03/19/18 04:45 RBC 4.20 M/mcL (4.19-5.50) 03/19/18 04:45 Hgb 12.9 g/dL (12.9-16.9) 03/19/18 04:45 Hct 38.4 % (37.5-50.1) 03/19/18 04:45 MCV 91.4 fL (83.0-100.0) 03/19/18 04:45 MCH 30.7 pg (28.0-33.3) 03/19/18 04:45 MCHC 33.6 g/dL (31.6-35.5) 03/19/18 04:45 RDW 12.8 % (11.5-14.5) 03/19/18 04:45 Plt Count 243 K/mcL (140-400) 03/19/18 04:45 MPV 11.4 fL (9.4-12.4) 03/19/18 04:45 Immature Gran % 0.2 % (0-4) 03/19/18 04:45 Seg Neutrophils % 50.4 % 03/19/18 04:45 Lymphocytes % 36.8 % 03/19/18 04:45 Monocytes % 10.1 % 03/19/18 04:45 Eosinophils % 1.7 % 03/19/18 04:45 Basophils % 0.8 % 03/19/18 04:45 Neutrophils # 3.3 K/mcL (1.6-8.9) 03/19/18 04:45 Lymphocytes # 2.4 K/mcL (0.6-4.6) 03/19/18 04:45 Monocytes # 0.7 K/mcL (0.0-1.3) 03/19/18 04:45 Eosinophils # 0.1 K/mcL (0.0-0.6) 03/19/18 04:45 Basophils # 0.1 K/mcL (0.0-0.2) 03/19/18 04:45 Sodium 136 mEq/L (136-145) 03/19/18 04:45 Potassium 3.5 mEq/L (3.5-5.1) 03/19/18 04:45 Chloride 98 mEq/L (98-107) 03/19/18 04:45 Carbon Dioxide 33 mEq/L (23-29) H 03/19/18 04:45 BUN 16 mg/dL (6-20) 03/19/18 04:45 Creatinine 0.74 mg/dL (0.70-1.30) 03/19/18 04:45 Est GFR ( Amer) > 60 (> 60) 03/19/18 04:45 Est GFR (Non-Af Amer) > 60 (> 60) 03/19/18 04:45 BUN/Creatinine Ratio 22 (6-26) 03/19/18 04:45 Glucose 84 mg/dL (70-105) 03/19/18 04:45 POC Glucose 98 mg/dL (70-99) 03/21/18 06:54 Calculated Osmolality 282 (280-300) 03/19/18 04:45 Calcium 9.1 mg/dL (8.6-10.3) 03/19/18 04:45 Total Bilirubin 0.2 mg/dL (0.3-1.0) L 03/12/18 10:16 Direct Bilirubin 0.0 mg/dL (0.0-0.2) 03/12/18 10:16 Indirect Bilirubin 0.2 mg/dL (0.0-1.2) 03/12/18 10:16 AST 18 Units/L (13-39) 03/12/18 10:16 ALT 24 Units/L (7-52) 03/12/18 10:16 Alkaline Phosphatase 152 Units/L (34-104) H 03/12/18 10:16 Creatine Kinase 48 Units/L (30-223) 03/12/18 10:16 Serum Total Protein 6.8 g/dL (6.4-8.9) 03/12/18 10:16 Albumin 3.8 g/dL (3.5-5.7) 03/12/18 10:16 Globulin 3.0 g/dL (2.4-3.5) 03/12/18 10:16 Albumin/Globulin Ratio 1.3 (1.1-2.2) 03/12/18 10:16 Triglycerides 202 mg/dL (< 150) H 03/15/18 05:25 Cholesterol 104 mg/dL (< 200) 03/15/18 05:25 LDL Cholesterol, Calc 31 mg/dL (0-99) 03/15/18 05:25 VLDL Cholesterol, Calc 40 mg/dL (< 31) H 03/15/18 05:25 HDL Cholesterol 33 mg/dL (40-59) L 03/15/18 05:25 Cholesterol/HDL Ratio 3.2 (0-4.9) 03/15/18 05:25 - Impressions Dx: Adjustment Disorder with Depressed Mood Consult Discharge Plan - Plan Referrals: Arias Barth MD [Primary Care Provider] - (Requested Follow up appointment, office will call you with appointment!) Prescriptions: Aspirin Enteric Coated [Aspirin EC] 81 mg PO BID #120 tablet. Niacinamide [Niacin] 500 mg PO 1-2XD 60 Days #120 tablet
--- NOTE | 2018-03-21 14:20 | Psychological Evaluation ---
Date of Encounter: 03/21/18 History of Present Illness History of present illness: Mr. Ybarra is a 42 year old male Home Medications and Allergies LevETIRAcetam [Levetiracetam] 1,000 mg GTUBE BID 11/27/15 [History] Acetaminophen [Tylenol] 650 mg GTUBE Q4HR PRN 03/01/18 [History] Amitriptyline [Elavil] 10 mg GTUBE HS 03/01/18 [History] Aspirin [Lo-Dose Aspirin EC] 81 mg GTUBE DAILY 03/01/18 [History] Atorvastatin Calcium [Lipitor] 20 mg GTUBE HS 03/01/18 [History] Donepezil HCl [Aricept] 10 mg GTUBE HS 03/01/18 [History] Metoclopramide [Reglan] 10 mg PO TIDAC 03/01/18 [History] Phenytoin Oral Susp [Dilantin Susp] 200 mg GTUBE BID 03/01/18 [History] Sucralfate [Carafate] 1 gm GTUBE QIDAC 03/01/18 [History] Aspirin Enteric Coated [Aspirin EC] 81 mg PO BID #120 tablet. 03/21/18 [Rx] Niacinamide [Niacin] 500 mg PO 1-2XD 60 Days #120 tablet 03/21/18 [Rx] 3 Allergy/AdvReac Type Severity Reaction Status Date / Time codeine Allergy Hives Verified 03/01/18 20:56 Latex, Natural Rubber Allergy Hives Verified 03/01/18 21:05 lorazepam [From Ativan] Allergy Hives Verified 11/27/15 11:36 promethazine [From Phenergan] AdvReac Confusion Verified 03/01/18 21:05
--- NOTE | 2018-03-21 14:38 | Psychological Evaluation ---
Date of Encounter: 03/21/18 Time of Encounter: 10:00 History of Present Illness History of present illness: Mr. Ybarra is a 42 year old male who was admitted for rehabilitation due to deconditioning secondary to his having an acute left frontal CVA and recent tumor debulking on the right frontal lobe several years ago, resulting in left hemiparesis. Patient is nonverbal and has experienced dysphagia, remaining nothing by mouth with complete nutritional intake by gastrostomy tube. 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 Patient received chemotherapy treatments afterwards and annual CT scans over the past several years show no regrowth. Patient has a history of [employer] shunt in place with recent CT scan showing no signs of hydrocephalus. Patient has a history of seizures since his right tumor. Home Medications and Allergies LevETIRAcetam [Levetiracetam] 1,000 mg GTUBE BID 11/27/15 [History] Acetaminophen [Tylenol] 650 mg GTUBE Q4HR PRN 03/01/18 [History] Amitriptyline [Elavil] 10 mg GTUBE HS 03/01/18 [History] Aspirin [Lo-Dose Aspirin EC] 81 mg GTUBE DAILY 03/01/18 [History] Atorvastatin Calcium [Lipitor] 20 mg GTUBE HS 03/01/18 [History] Donepezil HCl [Aricept] 10 mg GTUBE HS 03/01/18 [History] Metoclopramide [Reglan] 10 mg PO TIDAC 03/01/18 [History] Phenytoin Oral Susp [Dilantin Susp] 200 mg GTUBE BID 03/01/18 [History] Sucralfate [Carafate] 1 gm GTUBE QIDAC 03/01/18 [History] Aspirin Enteric Coated [Aspirin EC] 81 mg PO BID #120 tablet. 03/21/18 [Rx] Niacinamide [Niacin] 500 mg PO 1-2XD 60 Days #120 tablet 03/21/18 [Rx] 3 Allergy/AdvReac Type Severity Reaction Status Date / Time codeine Allergy Hives Verified 03/01/18 20:56 Latex, Natural Rubber Allergy Hives Verified 03/01/18 21:05 lorazepam [From Ativan] Allergy Hives Verified 11/27/15 11:36 promethazine [From Phenergan] AdvReac Confusion Verified 03/01/18 21:05 Social History - Social History Social History: Patient lived independently prior to CVA. Currently he lives wit his parents. He has 4 friends that he socializes with. He has never been and has no children. - Tobacco Use Smoking Status: Never smoker - Alcohol Use Alcohol Use: rarely - Drug Use Drug Use: none Cognitive/Emotional Assessment - Cognitive Ability Level of Alertness: Alert (Patient able to repeat 3/3 words after presentation; 2/3 words after 5 min; OX3; 6 digits forward, 4 digits backward; Spell WORLD forward and backward; Knew President, previous president but not Governor; serial 3's - 6 reiterations; and subtracr 14.45-20.00 accurately) Additional Findings: Patient was nonverbal and communicated via texting. - Emotional Status Affect Description: Labile (Patient stated mood " usually good; sometimes depressed". He was tearful with his situation and loss of independence since CVA.) Assessment & Plan - Diagnosis (1) Adjustment disorder with depressed mood - Prognosis Prognosis: Good - Treatment Plan Treatment Plan/Recommendations: Recommend outpatient adjustment counseling weekly for 1 month to develop and train strategies to elevate mood. Procedures - Participants Therapy Participant: Patient - Session Time Session Start Time: 10:00 Session Stop Time: 10:30
== END 2018-03-21 14:33 | disposition home or self-care (01) | DRG 57 ==
LOC: INPGRE 19:43